=== PATIENT | male | born 1935 | race Caucasian/White ===

== ENCOUNTER 2017-10-04 20:33 | Emergency (ER) | payer MEDICARE, SELFPAY ==
[2017-10-04 20:38] VITALS: BP 121/57; PULSE 63; RESP 22; TEMP 36.4; O2SAT 96
--- NOTE | 2017-10-04 20:40 | DI.RAD.S_ITS ---
PROCEDURE: XR SHOULDER LT MIN 2V INDICATIONS: glf TECHNIQUE: 3 views of the shoulder were acquired. COMPARISON: [facility], , CHEST 2 VIEW, 07/06/2017, 13:34. FINDINGS: Bones: Overriding mid left clavicle fracture, with inferior displacement lateral fragment approximately one shaft width. Chronic left shoulder joint degeneration. Soft tissues: No suspicious soft tissue calcifications. IMPRESSION: Overriding left mid clavicular fracture. Dictated by: Anurag Herrera M.D. on 10/04/2017 at 21:27 Approved by: Anurag Herrera M.D. on 10/04/2017 at 21:29
--- NOTE | 2017-10-04 21:24 | DI.CT.S_ITS ---
PROCEDURE: CT HEAD/BRAIN WO CON INDICATIONS: fall with head injury on Warfarin TECHNIQUE: Noncontrast 4.5 mm thick angled axial sections acquired from the foramen magnum to the vertex, with coronal and sagittal reformats. For radiation dose reduction, the following was used: automated exposure control, adjustment of mA and/or kV according to patient size. COMPARISON: None. FINDINGS: Image quality: Excellent. CSF spaces: Basal cisterns are patent. No extra-axial fluid collections. The ventricles are symmetric in size and shape. Brain: No intracranial bleeds or masses. There is cerebral volume loss for age, with resultant ventricular and sulcal prominence. There are periventricular and deep white matter chronic small vessel ischemic changes. There is intracranial internal carotid artery atherosclerosis. Skull and face: Calvarium and visualized facial bones appear intact, without suspicious lesions. Sinuses: Visualized sinuses and mastoids are clear. IMPRESSION: No acute intracranial process. Dictated by: Anurag Herrera M.D. on 10/04/2017 at 21:57 Approved by: Anurag Herrera M.D. on 10/04/2017 at 21:59
[2017-10-04] MEDS: HYDROCODONE/ACET 5/325 PREPACK 1 BOTTLE MISC (21:47)
[2017-10-04 21:57] LABS: INR 2.7 (0.9-1.3); Prothrombin Time 28.9 SECONDS (10.1-12.7)
[2017-10-04 22:22] VITALS: BP 139/52; PULSE 61
--- NOTE | 2017-10-04 22:22 | PC.NURSE ---
Pt has hx parkinson's with falls occasionally.
--- NOTE | 2017-10-04 22:55 | ED_ITS ---
HPI - Extremity Injury (Upper) General Chief Complaint: Extremity Injury, Upper Stated Complaint: LT SHOULDER INJURY S/P FALL Time Seen by Provider: 10/04/17 21:17 Source: patient and family Mode of arrival: ambulatory Limitations: no limitations History of Present Illness HPI narrative: 81-year-old male with history of Parkinson's and AFib on Coumadin presents with a chief complaint of a mechanical fall in which he fell on his left shoulder and hit his head earlier today. He fell a few days ago also and has bruising on the left side of his face and is yellowing. He denies loss of consciousness nor nausea or vomiting. He denies any neck or back pain. His chief complaint is of left shoulder pain particularly with any motion. He denies numbness or tingling. Patient activated as a modified trauma given ground level fall with head injury on Coumadin Related Data Home Medications Medication Instructions Recorded Confirmed DIMETHYL SULFONE/CHRISTINE ROOT 1 tab PO Q DAY #0 05/10/11 (GLUCOSAMINE/CHONDROITIN/MSM) spironolactone 25 mg PO QDAY #0 05/10/11 atorvastatin [Lipitor] 40 mg PO HS #0 12/20/11 warfarin [Coumadin] 5 mg #0 06/19/16 multivitamin [Multiple Vitamins] Q DAY #0 06/22/16 Previous Rx's Medication Instructions Recorded carbidopa-levodopa 0 PO SEE INSTRUCTIONS #275 tab 06/28/17 carbidopa-levodopa 1 tab PO SEE INSTRUCTIONS #275 tab 06/28/17 ropinirole [Requip] 0 PO SEE INSTRUCTIONS #540 tab 06/28/17 hydrocodone-acetaminophen 1 tab PO Q4-6H PRN #14 tab 10/04/17 Allergies Allergy/AdvReac Type Severity Reaction Status Date / Time No Known Drug Allergies Allergy Verified 10/04/17 21:47 Review of Systems Review of Systems All systems reviewed & are unremarkable except as noted in HPI and below Constitutional Denies chills, Denies fever(s), Denies lethargy and Denies weakness Eyes Denies change in vision, Denies eye discharge, Denies irritation and Denies loss of vision ENT Ears, Nose, Mouth, and Throat: Denies change in voice, Denies neck pain and Denies sore throat Cardiovascular Denies chest pain, Denies irregular heart rhythm, Denies lightheadedness, Denies palpitations, Denies dyspnea, Denies dyspnea on exertion and Denies orthopnea Respiratory Denies cough, Denies dyspnea, Denies dyspnea on exertion and Denies wheezing Gastrointestinal Gastrointestinal: Denies abdominal pain, Denies change in bowel habits, Denies diarrhea, Denies nausea and Denies vomiting Genitourinary Denies hematuria, Denies flank pain, Denies urinary incontinence and Denies urinary urgency Musculoskeletal Reports joint swelling, Reports limited range of motion and Denies neck pain Integumentary/Breasts Denies pruritus, Reports erythema, Denies rash and Denies wounds Neurologic Denies confusion, Denies loss of vision and Denies weakness Psychiatric Denies anxiety, Denies confusion, Denies depression, Denies homicidal ideation and Denies suicidal ideation Endocrine Denies palpitations Hematologic/Lymphatic Denies easy bruising Allergic/Immunologic Denies wheezing PFSH Social History Smoking Status: Former smoker Exam Narrative Exam Narrative: pleasant 81-year-old male resting comfortably with a resting tremor, complaining of pain in his shoulder, splinting it against his chest Initial Vital Signs Initial Vital Signs: Vital Signs Temperature 97.5 F L 10/04/17 20:38 Pulse Rate 63 10/04/17 20:38 Respiratory Rate 22 10/04/17 20:38 Blood Pressure 121/57 H 10/04/17 20:38 Pulse Oximetry 96 10/04/17 20:38 Const General: cooperative, well developed and in distress Nutritional Appearance: well nourished Orientation: alert, awake, oriented x3 and not confused [facility] Head: contusion ( Aging bruising on left side of face with yellowish to brown coloring. New were scalp hematoma on left parietal region is tender, swollen and a bit erythematous) Ears: hearing grossly normal bilaterally Nose: external nose normal Face and sinus: normal facial exam Mouth: oral mucosae normal Eyes General: appearance normal, both eyes and all related structures Eyelids: eyelids normal Conjunctivae: conjunctivae normal Sclera: sclerae normal Pupils: PERRL EOM: EOM intact bilaterally Neck Neck: normal visual inspection, trachea midline, No lymphadenopathy, No midline deformity and No JVD Lymphatic: No lymphedema Chest Chest: normal inspection of the chest Cardio Rate: regular rate Rhythm: regular rhythm Heart Sounds: no click, no gallops, no murmurs and no rubs Pulses: normal peripheral pulses GI Inspection: non-distended Palpation: soft, no hepatosplenomegaly, No guarding, No pulsatile mass and No tender Auscultation: normal bowel sounds Back/Spine/Pelvis Back: No CVA tenderness Cervical Spine: cervical ROM normal and No pain with cervical ROM Thoracic/Lumbar Spine: thoracic and lumbar spine normal to inspection Neuro General: alert, awake and oriented x3 Cognition: normal cognition Speech: speech normal Extrem Left upper extremity: shoulder/upper arm ( painful range of motion of left shoulder with palpable deformity and crepitance over the mid clavicle. No numbness in the axillary distribution) Procedures Orthopedic Splinting/Casting Injury #1: Side: left Upper Extremity Injury Location: clavicle and shoulder Upper Extremity Immobilizer: sling/shoulder immobilizer Course Orders Ordered: ED Orders 10/04/17 20:40 XR shoulder LT min 2V Stat 10/04/17 21:24 CT head/brain wo con Stat 10/04/17 21:37 Prothrombin Time INR Stat Discontinued Medications Hydrocodone Bitart/Acetaminophen (Vicodin Prepack) 1 bottle MISC SEEINSTR ONE Stop: 10/04/17 21:33 Last Admin: 10/04/17 21:47 Dose: 1 bottle Vital Signs - 8 hr 10/04/17 20:38 10/04/17 22:22 Temperature 97.5 F L Pulse Rate 63 61 Respiratory Rate 22 Blood Pressure 121/57 H Blood Pressure [Right Arm] 139/52 H Pulse Oximetry 96 MDM - Extremity Injury (Upper) Lab Data Lab Results 10/04/17 Range/Units 21:37 PT 28.9 H (10.1-12.7) SECONDS INR 2.7 H (0.9-1.3) Discharge Plan Departure Patient Disposition: Home, Self-Care Clinical Impression: Contusion of scalp, Fracture closed, clavicle, shaft Discharge Date/Time: 10/04/17 23:16 Interventions: ED Discharge Assessment Last Done: 10/04/17 22:28 Activity Restrictions/Additional Instructions: *You have been diagnosed with [ Scalp contusion and left clavicle fracture ] *What to do: *Take medications as directed *Follow up with your primary care provider in 2-3 days, call for an appointment. Let them know you were seen in the Emergency Department and that we ask that you be seen in follow up. also you have been given follow-up instructions and contact info for Dr. Hightower with [facility], please call for appointment *Return to ER if you should have any new, worsening or concerning symptoms , such as [ blurred vision, trouble with speech, numbness, tingling or other stroke-like symptoms ] You have been prescribed narcotic medications. While on these medications you cannot drive or operate heavy machinery. Additionally you cannot sign legal documents or perform any duties such as this. Many people get constipated on narcotic medications so it would be advisable to discuss stool softeners with the pharmacist when you steel pickler your prescription. Please understand that we cannot provide further refills of narcotics or controlled substances through the ED and your pain management will need to be through your Primary Care Provider Prescriptions: New hydrocodone-acetaminophen 5-325 mg tablet 1 tab PO Q4-6H PRN (Reason: pain) Qty: 14 RF: 0 No Action DIMETHYL SULFONE/CHRISTINE ROOT (GLUCOSAMINE/CHONDROITIN/MSM) 1 tab PO Q DAY Qty: 0 RF: 0 spironolactone 25 MG tablet 25 mg PO QDAY Qty: 0 RF: 0 atorvastatin [Lipitor] 40 MG tablet 40 mg PO HS Qty: 0 RF: 0 warfarin [Coumadin] 5 MG tablet 5 mg Qty: 0 RF: 0 multivitamin [Multiple Vitamins] 1 EACH tablet Q DAY Qty: 0 RF: 0 ropinirole [Requip] 3 MG tablet PO SEE INSTRUCTIONS Qty: 540 RF: 3 carbidopa-levodopa 50 MG/200 MG tablet extended release 1 tab PO SEE INSTRUCTIONS Qty: 275 RF: 3 carbidopa-levodopa 25 MG/100 MG tablet PO SEE INSTRUCTIONS Qty: 275 RF: 3 Referrals: Jean Hightower MD [Physician] - Red Kessler MD [Primary Care Provider] -
== END 2017-10-04 23:16 | disposition home or self-care (01) ==
PROVIDERS: Emergency Provider Emergency Medicine; Family Provider Family Medicine; PCP Family Medicine
DX: S00.03XA Contusion of scalp, initial encounter (principal); S42.002A Fracture of unspecified part of left clavicle, initial encounter for closed fracture; W19.XXXA Unspecified fall, initial encounter
CPT/HCPCS: 29240; 36415; 70450; 73030; 85610; 99283; 99284; 99291

== ENCOUNTER 2017-12-22 09:31 | Emergency (ER) | payer MEDICARE, SELFPAY ==
[2017-12-22 09:40] VITALS: BP 111/55; PULSE 59; RESP 20; TEMP 36.3; O2SAT 95
--- NOTE | 2017-12-22 09:40 | ED.TRAUMA ---
HPI - Trauma General Chief Complaint: Fall Stated Complaint: Ground Level Fall Time Seen by Provider: 12/22/17 09:39 Source: patient and EMS Mode of arrival: EMS Limitations: no limitations History of Present Illness HPI narrative: This is an 82-year-old comes to the emergency department with complaint of ground level fall. Patient states that he just fell to the ground. He has Parkinson's which has been slowly worsening over time and he has had increasing frequency of falls secondary to this. He states he did get lightheaded dizzy, he did have loss of consciousness. He did land on his face Um and has a small laceration at the bridge of his nose as well as abrasions on his face and left elbow. He denies any headache, no neck or back pain. He denies any new weakness. He denies any vision changes, no nausea, no vomiting no other GI or urinary symptoms. He thinks his tetanus was sometime in the last 10 years. he used to be on Coumadin but stopped 4 months ago because of his frequent falls. MD complaint: fall Related Data Home Medications Medication Instructions Recorded Confirmed spironolactone 25 mg PO QDAY #0 05/10/11 12/22/17 atorvastatin [Lipitor] 40 mg PO HS #0 12/20/11 12/22/17 carbidopa-levodopa 1 tab PO DIRECTED 12/22/17 12/22/17 carbidopa-levodopa 1 tab PO Q4H 12/22/17 12/22/17 carvedilol 1 tab PO BID 12/22/17 12/22/17 furosemide 60 mg PO DAILY 12/22/17 12/22/17 lisinopril 5 mg PO DAILY 12/22/17 12/22/17 ropinirole [Requip] 2 tab PO TID 12/22/17 12/22/17 Allergies Allergy/AdvReac Type Severity Reaction Status Date / Time No Known Drug Allergies Allergy Verified 12/22/17 10:02 Review of Systems Review of Systems All systems reviewed & are unremarkable except as noted in HPI and below Constitutional Reports frequent falls, Denies headache(s) and Denies weakness Eyes Denies blurry vision and Denies other visual disturbances ENT Ears, Nose, Mouth, and Throat: Denies headache(s), Reports nasal trauma, Reports nose pain and Reports other (Facial abrasions) Cardiovascular Denies chest pain, Denies diaphoresis, Denies syncope, Denies irregular heart rhythm, Denies lightheadedness, Denies palpitations, Reports dyspnea (Patient states he is always short of breath, states this is not new or different.) and Denies orthopnea Respiratory Denies cough, Reports dyspnea (Patient states he is always short of breath, states this is not new or different.) and Denies wheezing Gastrointestinal Gastrointestinal: Denies abdominal pain, Denies change in bowel habits, Denies diarrhea, Denies nausea and Denies vomiting Genitourinary Denies hematuria, Denies flank pain, Denies urinary incontinence and Denies urinary urgency Musculoskeletal Denies numbness Comments: Parkinson's disease, patient is still taking medications. Having increased movement. Integumentary/Breasts Reports lesions (left arm, face.) Neurologic Reports as per HPI, Reports abnormal movements (2nd Parkinson's disease, not new.), Denies confusion, Denies syncope, Reports frequent falls, Denies headache(s), Denies numbness, Denies paresthesias and Denies weakness Psychiatric Denies confusion Endocrine Denies palpitations Allergic/Immunologic Denies wheezing PFSH Medical History Parkinson disease (Chronic) Social History housing: longterm Smoking Status: Former smoker Exam Narrative Exam Narrative: GEN: Patient appears in mild distress. HEAD: Patient has a 3 x 4 cm abrasion on his anterior forehead, he has a small 1 cm laceration bridge of his nose, there is subcutaneous tissue exposed there is no bone exposed, the nose itself appears and alignment, he has some abrasion over the nose itself, and patient has dried blood in the left nare, no raccoon/[place] sign. NECK: Nontender, painless range of motion, trachea midline Negative Nexus criteria, there is no midline tenderness, distracting injury, altered mental status, neuro deficit, recent EtOH. EYES: PERRLA, EOMI ENT: External inspection see above, patient does no bony tenderness and normal alignment of the nose trachea is midline, TM's are normal no hemotypanum, Nare follow-up shows dried blood, none noted on the right, no septal hematoma, no dental or oral injury, airway is normal and with normal occlusion, No bony tenderness RESP: Chest is nontender and has symmetric movement, no ecchymosis, breath sounds are normal no crackles, wheezes or rales CVS: Heart sounds are normal, no murmur noted, No JVD. Edema bilateral lower extremities. ABG/GI: Nontender, soft, normal bowel sounds, no distention, no organomegaly, pelvic rock is negative NEURO: Oriented AOx3, neuro is grossly intact, sensation and motor is normal all 4 extremities moving with the exception of intermittent Um uncontrolled movements particularly of the upper extremities but some also the lower, patient is able to sit up in the bed without any assistance he is able to lift and move his arms without assistance, cranial nerves II through XII are intact, GCS is 15 PSYCH: Normal mood and affect SKIN: Intact, warm and dry, no crepitus and without decubitus BACK: No CVA tenderness, no vertebral tenderness, no step-off's, no crepitus EXT: Atraumatic, hips are nontender, no pedal edema, normal color and temperature, normal range of motion of extremities with normal tendon exam, 2+ pulses in all four extremities Initial Vital Signs Initial Vital Signs: Vital Signs Temperature 97.4 F L 12/22/17 09:40 Pulse Rate 59 L 12/22/17 09:40 Respiratory Rate 20 12/22/17 09:40 Blood Pressure 111/55 L 12/22/17 09:40 Pulse Oximetry 95 12/22/17 09:40 Procedures Laceration Repair Laceration 1: Site: face (bridge of nose) Size (cm): 1 Description: linear Depth: simple, single layer Local Anesthetic: lidocaine 1% Amount of anesthesia used (mL): 0.5 Pre-repair: wound explored, irrigated extensively and deep structures intact Skin layer closed with: vicryl Size (cm): 5-0 Number of sutures: 4 Scores GCS Warwick coma scale eye opening: Spontaneous Gin coma scale verbal response: Orientated [place] coma scale motor response: Obey commands Gin coma scale total score: 15 Course Orders Ordered: ED Orders 12/22/17 09:39 CT head/brain wo con Stat Discontinued Medications Diphtheria/Tetanus/Acell Pertussis (Adacel) 0.5 ml IM .ONCE ONE Stop: 12/22/17 09:40 Last Admin: 12/22/17 10:09 Dose: 0.5 ml Vital Signs - 8 hr 12/22/17 11:23 Pulse Rate 60 Respiratory Rate 20 Blood Pressure [Right Arm] 128/58 L Pulse Oximetry 95 MDM - Trauma Imaging Data CT scan - head: Radiologist's impression: [address] [address] [address] Scan Report Signed Patient: Justo Gunderson [facility]#: [id number] : 6Acct:[id number] Age/Sex: 82 / MDate of Service: 12/22/17 Loc: ED Accession Number: [id number] Procedure: CT head/brain wo con Ordering Provider: Ivonne Del Toro D.O. PROCEDURE: CT HEAD/BRAIN WO CON INDICATIONS: ground level fall, head injury TECHNIQUE: Noncontrast 4.5 mm thick angled axial sections acquired from the foramen magnum to the vertex, with coronal and sagittal reformats. For radiation dose reduction, the following was used: automated exposure control, adjustment of mA and/or kV according to patient size. COMPARISON: [facility], CT, CT HEAD/BRAIN WO CON, 10/04/2017, 21:42. FINDINGS: Image quality: Excellent. CSF spaces: Basal cisterns are patent. No extra-axial fluid collections. The ventricles are symmetric in size and shape. Brain: No intracranial bleeds or masses. There is cerebral volume loss for age, with resultant ventricular and sulcal prominence. There are periventricular and deep white matter chronic small vessel ischemic changes. There is intracranial internal carotid artery and vertebral artery atherosclerosis. Skull and face: Calvarium and visualized facial bones appear intact, without suspicious lesions. Right frontal scalp hematoma is noted. Sinuses: Visualized sinuses and mastoids are clear. IMPRESSION: No acute intracranial disease process. Dictated by: Danica Roland MD, PhD on 12/22/2017 at 10:27 Approved by: Danica Roland MD, PhD on 12/22/2017 at 10:30 [facility] Narrative Medical decision making narrative: Based on patient's age CT of the head was ordered although he is no longer blood thinners he does have increased risk for intracranial hemorrhage in does have head injury. Discharge Plan Departure Patient Disposition: Home Clinical Impression: Abrasion of scalp, Laceration of nose, Abrasion of elbow, left Discharge Date/Time: 12/22/17 11:39 Interventions: ED Discharge Assessment Last Done: 12/22/17 11:39 Instructions: Concussion Activity Restrictions/Additional Instructions: Wound Care: Keep wound(s) clean and dry. Wash daily with soap and water only. Do not use over the counter products (alcohol or peroxide)on the wounds unless instructed by a physician. If wound condition worsens (increased/expanding redness, developing fluid blisters, or worsening pain), either contact your doctor for an urgent re-assessment , or return to the Emergency Department. Return to the Emergency Department for any new or worsening symptoms. Return if fever greater than 100.4 Fahrenheit, increased swelling, increasing pain or worsening symptoms such as increased discharge or spreading redness. Use warm compresses 3 times daily for 20 minutes to the affected area. . Having sudden severe headaches, decreased mental status, vision changes, new neck or back pain, new weakness or numbness or inability to move her extremities, persistent vomiting or other new or concerning symptoms. Prescriptions: No Action spironolactone 25 MG tablet 25 mg PO QDAY Qty: 0 RF: 0 atorvastatin [Lipitor] 40 MG tablet 40 mg PO HS Qty: 0 RF: 0 furosemide 40 mg tablet 60 mg PO DAILY RF: 0 carvedilol 3.125 mg tablet 1 tab PO BID RF: 0 lisinopril 10 mg tablet 5 mg PO DAILY RF: 0 ropinirole [Requip] 3 MG tablet 2 tab PO TID RF: 0 carbidopa-levodopa 50 MG/200 MG tablet extended release 1 tab PO Q4H RF: 0 carbidopa-levodopa 25 MG/100 MG tablet 1 tab PO DIRECTED RF: 0 Referrals: Red Kessler MD [Primary Care Provider] -
--- NOTE | 2017-12-22 09:51 | ED_ITS ---
HPI - Trauma General Chief Complaint: Fall Stated Complaint: Ground Level Fall Time Seen by Provider: 12/22/17 09:39 Source: patient and EMS Mode of arrival: EMS Limitations: no limitations History of Present Illness HPI narrative: This is an 82-year-old comes to the emergency department with complaint of ground level fall. Patient states that he just fell to the ground. He has Parkinson's which has been slowly worsening over time and he has had increasing frequency of falls secondary to this. He states he did get lightheaded dizzy, he did have loss of consciousness. He did land on his face Um and has a small laceration at the bridge of his nose as well as abrasions on his face and left elbow. He denies any headache, no neck or back pain. He denies any new weakness. He denies any vision changes, no nausea, no vomiting no other GI or urinary symptoms. He thinks his tetanus was sometime in the last 10 years. he used to be on Coumadin but stopped 4 months ago because of his frequent falls. MD complaint: fall Related Data Home Medications Medication Instructions Recorded Confirmed spironolactone 25 mg PO QDAY #0 05/10/11 12/22/17 atorvastatin [Lipitor] 40 mg PO HS #0 12/20/11 12/22/17 carbidopa-levodopa 1 tab PO DIRECTED 12/22/17 12/22/17 carbidopa-levodopa 1 tab PO Q4H 12/22/17 12/22/17 carvedilol 1 tab PO BID 12/22/17 12/22/17 furosemide 60 mg PO DAILY 12/22/17 12/22/17 lisinopril 5 mg PO DAILY 12/22/17 12/22/17 ropinirole [Requip] 2 tab PO TID 12/22/17 12/22/17 Allergies Allergy/AdvReac Type Severity Reaction Status Date / Time No Known Drug Allergies Allergy Verified 12/22/17 10:02 Review of Systems Review of Systems All systems reviewed & are unremarkable except as noted in HPI and below Constitutional Reports frequent falls, Denies headache(s) and Denies weakness Eyes Denies blurry vision and Denies other visual disturbances ENT Ears, Nose, Mouth, and Throat: Denies headache(s), Reports nasal trauma, Reports nose pain and Reports other (Facial abrasions) Cardiovascular Denies chest pain, Denies diaphoresis, Denies syncope, Denies irregular heart rhythm, Denies lightheadedness, Denies palpitations, Reports dyspnea (Patient states he is always short of breath, states this is not new or different.) and Denies orthopnea Respiratory Denies cough, Reports dyspnea (Patient states he is always short of breath, states this is not new or different.) and Denies wheezing Gastrointestinal Gastrointestinal: Denies abdominal pain, Denies change in bowel habits, Denies diarrhea, Denies nausea and Denies vomiting Genitourinary Denies hematuria, Denies flank pain, Denies urinary incontinence and Denies urinary urgency Musculoskeletal Denies numbness Comments: Parkinson's disease, patient is still taking medications. Having increased movement. Integumentary/Breasts Reports lesions (left arm, face.) Neurologic Reports as per HPI, Reports abnormal movements (2nd Parkinson's disease, not new.), Denies confusion, Denies syncope, Reports frequent falls, Denies headache (s), Denies numbness, Denies paresthesias and Denies weakness Psychiatric Denies confusion Endocrine Denies palpitations Allergic/Immunologic Denies wheezing PFSH Medical History Parkinson disease (Chronic) Social History housing: fdc Smoking Status: Former smoker Exam Narrative Exam Narrative: GEN: Patient appears in mild distress. HEAD: Patient has a 3 x 4 cm abrasion on his anterior forehead, he has a small 1 cm laceration bridge of his nose, there is subcutaneous tissue exposed there is no bone exposed, the nose itself appears and alignment, he has some abrasion over the nose itself, and patient has dried blood in the left nare, no raccoon/ Valverde sign. NECK: Nontender, painless range of motion, trachea midline Negative Nexus criteria, there is no midline tenderness, distracting injury, altered mental status, neuro deficit, recent EtOH. EYES: PERRLA, EOMI ENT: External inspection see above, patient does no bony tenderness and normal alignment of the nose trachea is midline, TM's are normal no hemotypanum, Nare follow-up shows dried blood, none noted on the right, no septal hematoma, no dental or oral injury, airway is normal and with normal occlusion, No bony tenderness RESP: Chest is nontender and has symmetric movement, no ecchymosis, breath sounds are normal no crackles, wheezes or rales CVS: Heart sounds are normal, no murmur noted, No JVD. Edema bilateral lower extremities. ABG/GI: Nontender, soft, normal bowel sounds, no distention, no organomegaly, pelvic rock is negative NEURO: Oriented AOx3, neuro is grossly intact, sensation and motor is normal all 4 extremities moving with the exception of intermittent Um uncontrolled movements particularly of the upper extremities but some also the lower, patient is able to sit up in the bed without any assistance he is able to lift and move his arms without assistance, cranial nerves II through XII are intact, GCS is 15 PSYCH: Normal mood and affect SKIN: Intact, warm and dry, no crepitus and without decubitus BACK: No CVA tenderness, no vertebral tenderness, no step-off's, no crepitus EXT: Atraumatic, hips are nontender, no pedal edema, normal color and temperature, normal range of motion of extremities with normal tendon exam, 2+ pulses in all four extremities Initial Vital Signs Initial Vital Signs: Vital Signs Temperature 97.4 F L 12/22/17 09:40 Pulse Rate 59 L 12/22/17 09:40 Respiratory Rate 20 12/22/17 09:40 Blood Pressure 111/55 L 12/22/17 09:40 Pulse Oximetry 95 12/22/17 09:40 Procedures Laceration Repair Laceration 1: Site: face (bridge of nose) Size (cm): 1 Description: linear Depth: simple, single layer Local Anesthetic: lidocaine 1% Amount of anesthesia used (mL): 0.5 Pre-repair: wound explored, irrigated extensively and deep structures intact Skin layer closed with: vicryl Size (cm): 5-0 Number of sutures: 4 Scores GCS Gin coma scale eye opening: Spontaneous Butler coma scale verbal response: Orientated Butler coma scale motor response: Obey commands Gin coma scale total score: 15 Course Orders Ordered: ED Orders 12/22/17 09:39 CT head/brain wo con Stat Discontinued Medications Diphtheria/Tetanus/Acell Pertussis (Adacel) 0.5 ml IM .ONCE ONE Stop: 12/22/17 09:40 Last Admin: 12/22/17 10:09 Dose: 0.5 ml Vital Signs - 8 hr 12/22/17 11:23 Pulse Rate 60 Respiratory Rate 20 Blood Pressure [Right Arm] 128/58 L Pulse Oximetry 95 MDM - Trauma Imaging Data CT scan - head: Radiologist's impression: [address] [address] [address] Scan Report Signed Patient: Just[facility] Gunderson [facility]#: [id number] : 6Acct:[id number] Age/Sex: 82 / MDate of Service: 12/22/17 Loc: ED Accession Number: [id number] Procedure: CT head/brain wo con Ordering Provider: Ivonne Del Toro D.O. PROCEDURE: CT HEAD/BRAIN WO CON INDICATIONS: ground level fall, head injury TECHNIQUE: Noncontrast 4.5 mm thick angled axial sections acquired from the foramen magnum to the vertex, with coronal and sagittal reformats. For radiation dose reduction, the following was used: automated exposure control, adjustment of mA and/or kV according to patient size. COMPARISON: [facility], CT, CT HEAD/BRAIN WO CON, 10/04/2017, 21:42. FINDINGS: Image quality: Excellent. CSF spaces: Basal cisterns are patent. No extra-axial fluid collections. The ventricles are symmetric in size and shape. Brain: No intracranial bleeds or masses. There is cerebral volume loss for age , with resultant ventricular and sulcal prominence. There are periventricular and deep white matter chronic small vessel ischemic changes. There is intracranial internal carotid artery and vertebral artery atherosclerosis. Skull and face: Calvarium and visualized facial bones appear intact, without suspicious lesions. Right frontal scalp hematoma is noted. Sinuses: Visualized sinuses and mastoids are clear. IMPRESSION: No acute intracranial disease process. Dictated by: Danica Roland MD, PhD on 12/22/2017 at 10:27 Approved by: Danica Roland MD, PhD on 12/22/2017 at 10:30 [facility] Narrative Medical decision making narrative: Based on patient's age CT of the head was ordered although he is no longer blood thinners he does have increased risk for intracranial hemorrhage in does have head injury. Discharge Plan Departure Patient Disposition: Home Clinical Impression: Abrasion of scalp, Laceration of nose, Abrasion of elbow, left Discharge Date/Time: 12/22/17 11:39 Interventions: ED Discharge Assessment Last Done: 12/22/17 11:39 Instructions: Concussion Activity Restrictions/Additional Instructions: Wound Care: Keep wound(s) clean and dry. Wash daily with soap and water only. Do not use over the counter products (alcohol or peroxide)on the wounds unless instructed by a physician. If wound condition worsens (increased/expanding redness, developing fluid blisters, or worsening pain), either contact your doctor for an urgent re- assessment , or return to the Emergency Department. Return to the Emergency Department for any new or worsening symptoms. Return if fever greater than 100.4 Fahrenheit, increased swelling, increasing pain or worsening symptoms such as increased discharge or spreading redness. Use warm compresses 3 times daily for 20 minutes to the affected area. . Having sudden severe headaches, decreased mental status, vision changes, new neck or back pain, new weakness or numbness or inability to move her extremities , persistent vomiting or other new or concerning symptoms. Prescriptions: No Action spironolactone 25 MG tablet 25 mg PO QDAY Qty: 0 RF: 0 atorvastatin [Lipitor] 40 MG tablet 40 mg PO HS Qty: 0 RF: 0 furosemide 40 mg tablet 60 mg PO DAILY RF: 0 carvedilol 3.125 mg tablet 1 tab PO BID RF: 0 lisinopril 10 mg tablet 5 mg PO DAILY RF: 0 ropinirole [Requip] 3 MG tablet 2 tab PO TID RF: 0 carbidopa-levodopa 50 MG/200 MG tablet extended release 1 tab PO Q4H RF: 0 carbidopa-levodopa 25 MG/100 MG tablet 1 tab PO DIRECTED RF: 0 Referrals: Red Kessler MD [Primary Care Provider] -
[2017-12-22] MEDS: TET,DIPH,PERTUSS(ACELL),VAC/PF 0.5 ML SYRINGE IM (10:09)
[2017-12-22 11:23] VITALS: BP 128/58; PULSE 60; RESP 20; O2SAT 95
== END 2017-12-22 11:39 | disposition home or self-care (01) ==
PROVIDERS: Emergency Provider Emergency Medicine; Family Provider Family Medicine; PCP Family Medicine
DX: S01.21XA Laceration without foreign body of nose, initial encounter (principal); S50.312A Abrasion of left elbow, initial encounter; W18.30XA Fall on same level, unspecified, initial encounter
CPT/HCPCS: 12011; 70450; 90471; 99283; 90715

== ENCOUNTER 2018-01-29 21:34 | Inpatient (IN) | payer MEDICARE, SELFPAY ==
[2018-01-29 21:44] VITALS: BP 132/91; PULSE 58; RESP 28; TEMP 36.4; O2SAT 95
--- NOTE | 2018-01-29 21:53 | DI.RAD.S_ITS ---
PROCEDURE: XR LUMBAR SPINE 2-3V INDICATIONS: back pain, ground level fall TECHNIQUE: 3 views of the lumbar spine were acquired. COMPARISON: [facility], CT, CT-IVP, 06/09/2011, 8:43. FINDINGS: Bones: Rudimentary inferior extent noted. There are 5 [id number] vertebrae. There is normal bony alignment. No vertebral body compression fractures. No suspicious bony lesions. Degenerative disc disease is present, severe at L2-L3 and L3-L4, moderate at L1-L2, L4-L5 and L5-S1. There is severe facet arthropathy at L4-L5 and L5-S1. Soft tissues: Overlying bowel gas pattern is normal. Aortic calcifications consistent with atherosclerosis. IMPRESSION: 1. No fractures. 2. Degenerative disc and facet disease. 3. Severe atherosclerosis. Dictated by: Katlin Arizmendi M.D. on 01/30/2018 at 9:08 Approved by: Katlin Arizmendi M.D. on 01/30/2018 at 9:12
--- NOTE | 2018-01-29 21:55 | ED.FALL ---
HPI - Fall General Chief Complaint: Fall Stated Complaint: FALL BACK IS KILLING HIM Time Seen by Provider: 01/29/18 21:54 Source: patient and family Limitations: no limitations History of Present Illness HPI Narrative: This is an 82-year-old gentleman who comes to the emergency department with complaint of fall. Patient has Parkinson's which causes him to fall quite frequently. Patient states that he fell today and his back. He has pain in his back and complains mostly in the left side. Patient does not any tenderness of the bone itself. Patient hitting his head he is very clear that he did not, he does take aspirin daily as a blood thinner but does not take any other anticoagulants. Patient is denying any chest pain or new shortness of breath. No nausea or vomiting. He is denying any other new injuries. He does have abrasions on both knees which he and his family states are chronic from prior falls and then get irritated again when he falls again. He does not have any other complaint of bony tenderness elsewhere. Related Data Home Medications Medication Instructions Recorded Confirmed spironolactone 25 mg PO QDAY #0 05/10/11 01/30/18 atorvastatin [Lipitor] 40 mg PO HS #0 12/20/11 01/30/18 carbidopa-levodopa 1 tab PO DIRECTED 12/22/17 01/30/18 carbidopa-levodopa 1 tab PO Q4H 12/22/17 01/30/18 carvedilol 1 tab PO BID 12/22/17 01/30/18 furosemide 60 mg PO DAILY 12/22/17 01/30/18 lisinopril 5 mg PO DAILY 12/22/17 01/30/18 ropinirole [Requip] 2 tab PO TID 12/22/17 01/30/18 Previous Rx's Medication Instructions Recorded hydrocodone-acetaminophen [[place]] 1 tab PO Q6H PRN #10 tab 01/29/18 Allergies Allergy/AdvReac Type Severity Reaction Status Date / Time No Known Drug Allergies Allergy Verified 01/29/18 21:50 Review of Systems Review of Systems All systems reviewed & are unremarkable except as noted in HPI and below Constitutional Reports frequent falls, Denies headache(s) and Denies other ( LOC, head) ENT Ears, Nose, Mouth, and Throat: Denies headache(s) and Denies neck pain Cardiovascular Denies chest pain and Reports dyspnea ( chronic no new change) Respiratory Reports dyspnea ( chronic no new change) Gastrointestinal Gastrointestinal: Denies abdominal pain, Reports change in bowel habits, Denies diarrhea, Denies nausea and Denies vomiting Genitourinary Denies difficulty urinating Musculoskeletal Reports back pain, Reports limited range of motion, Denies muscle weakness, Denies neck pain, Denies numbness and Reports other ( Parkinson') Neurologic Reports abnormal movements ( has Parkinson's), Reports frequent falls, Denies headache(s) and Denies numbness Exam Narrative Exam Narrative: GEN:Patient appears in moderate distress. HEAD: No evidence of trauma, no raccoon/Valverde sign. NECK: Nontender, painless range of motion, trachea midline Negative Nexus criteria, there is no mid-line tenderness, distracting injury, altered mental status, neuro deficit, recent EtOH. EYES: PERRLA, EOMI ENT: External inspection normal, trachea is midline, Nares are clear, airway is normal and with normal occlusion, No bony tenderness RESP: Chest is nontender and has symmetric movement, no ecchymosis, breath sounds are normal no crackles, wheezes or rales CVS: Heart sounds are normal, no murmur noted, No JVD. ABG/GI: Nontender, soft, normal bowel sounds, no distention, no organomegaly, pelvic rock is negative. NEURO: Oriented AOx3, neuro is grossly intact, sensation and motor is normal all 4 extremities moving, cranial nerves II through XII are intact, GCS is 15, patient has tremor of all four extremities, he has exagerrated movement of all extremities as well. PSYCH: Normal mood and affect SKIN: Abrasions bilateral knees, no erythema or drainage, no signs of infection, patient also has some small areas of ecchymosis of the right flank region, warm and dry, no crepitus and without decubitus BACK: No CVA tenderness, no vertebral tenderness, no step-off's, no crepitus, patient able to roll to side with assistance without too much discomfort. EXT: Atraumatic, hips are nontender, no pedal edema, normal color and temperature, normal range of motion of extremities with normal tendon exam, 2+ pulses in all four extremities Initial Vital Signs Initial Vital Signs: Vital Signs Temperature 97.5 F L 01/29/18 21:44 Pulse Rate 58 L 01/29/18 21:44 Respiratory Rate 28 H 01/29/18 21:44 Blood Pressure 132/91 H 01/29/18 21:44 Pulse Oximetry 95 01/29/18 21:44 [facility] Medical History Parkinson disease (Chronic) Social History housing: intermediate Smoking Status: Former smoker Course Orders Ordered: ED Orders 01/29/18 21:53 XR lumbar spine 2-3V Stat 01/29/18 22:30 Complete Blood Count AUTO DIFF Stat Comprehensive Metabolic Panel Stat 01/30/18 EKG-12 Lead Routine 01/30/18 00:06 XR chest 1V Stat 01/30/18 00:36 B Type Natriuretic Peptide Stat Troponin I Stat 01/30/18 00:37 EKG-12 Lead Stat Discontinued Medications Furosemide (Lasix) 40 mg IV NOW ONE Stop: 01/30/18 00:42 Last Admin: 01/30/18 01:33 Dose: 40 mg Morphine Sulfate (Morphine) 2 mg IV NOW ONE Stop: 01/29/18 21:54 Last Admin: 01/29/18 22:17 Dose: 2 mg Vital Signs - 8 hr 01/29/18 21:44 01/29/18 23:49 01/30/18 00:05 Temperature 97.5 F L 97.9 F Pulse Rate 58 L 59 L Respiratory Rate 28 H 28 H Blood Pressure 132/91 H Blood Pressure [Left Arm] 107/49 L Pulse Oximetry 95 95 85 L 01/30/18 01:04 01/30/18 02:26 01/30/18 02:52 Temperature 97.8 F Pulse Rate 59 L 60 63 Respiratory Rate 20 16 Blood Pressure 127/60 Blood Pressure [Left Arm] 112/55 L 115/54 L Pulse Oximetry 95 96 94 MDM - Fall Lab Data Attestation: I reviewed the patient's lab results. Result diagrams: 01/29/18 22:30 01/29/18 22:30 Lab Results 01/29/18 01/29/18 01/29/18 Range/Units 22:30 22:30 22:30 WBC 9.4 (4.5-11.0) X10^3/uL RBC 3.62 L (4.5-5.9) X10^6/uL Hgb 10.7 L (13.5-17.5) g/dL Hct 32.7 L (41-53) % MCV 90.3 (80-100) fL MCH 29.6 (26-34) PG MCHC 32.8 (30-36) % RDW 15.4 H (11.6-14.8) % Plt Count 266 (150-400) X10^3/uL Neut % (Auto) 86.2 H (50-75) % Lymph % (Auto) 4.7 L (25-40) % Meagher % (Auto) 7.5 (3-14) % Eos % (Auto) 1.1 L (2-4) % Baso % (Auto) 0.5 (0-2) % Neut # (Auto) 8100 H (7909-7677) /uL Sodium 136 L (137-145) mmol/L Potassium 5.3 H (3.4-5.1) mmol/L Chloride 102 (98-107) mmol/L Carbon Dioxide 23 (22-32) mmol/L BUN 43 H (9-20) mg/dL Creatinine 0.80 (0.66-1.25) mg/dL Estimated GFR > 60.0 (>60) mL/min BUN/Creatinine Ratio 53.8 H (6-22) Glucose 104 (80-110) mg/dL Calcium 8.4 (8.4-10.2) mg/dL Total Bilirubin 1.1 (0.2-1.3) mg/dL AST 57 (17-59) IU/L ALT 15 L (21-72) IU/L Alkaline Phosphatase 201 H (38-126) U/L Troponin I 0.030 (0.01-0.034) ng/mL B-Natriuretic Peptide (<100) Total Protein 6.1 L (6.3-8.2) g/dL Albumin 3.2 L (3.5-5.0) g/dL Globulin 2.9 (1.7-4.1) g/dL Albumin/Globulin Ratio 1.1 (1.0-2.8) 11/12/18 Range/Units 22:30 WBC (4.5-11.0) X10^3/uL RBC (4.5-5.9) X10^6/uL Hgb (13.5-17.5) g/dL Hct (41-53) % MCV (80-100) fL MCH (26-34) PG MCHC (30-36) % RDW (11.6-14.8) % Plt Count (150-400) X10^3/uL Neut % (Auto) (50-75) % Lymph % (Auto) (25-40) % Meagher % (Auto) (3-14) % Eos % (Auto) (2-4) % Baso % (Auto) (0-2) % Neut # (Auto) (3603-7367) /uL Sodium (137-145) mmol/L Potassium (3.4-5.1) mmol/L Chloride (98-107) mmol/L Carbon Dioxide (22-32) mmol/L BUN (9-20) mg/dL Creatinine (0.66-1.25) mg/dL Estimated GFR (>60) mL/min BUN/Creatinine Ratio (6-22) Glucose (80-110) mg/dL Calcium (8.4-10.2) mg/dL Total Bilirubin (0.2-1.3) mg/dL AST (17-59) IU/L ALT (21-72) IU/L Alkaline Phosphatase (38-126) U/L Troponin I (0.01-0.034) ng/mL B-Natriuretic Peptide 829.0 H (<100) Total Protein (6.3-8.2) g/dL Albumin (3.5-5.0) g/dL Globulin (1.7-4.1) g/dL Albumin/Globulin Ratio (1.0-2.8) Imaging Data Lspine xray: Radiologist's impression: Superior endplate deformity L1 with loss of vertebral body height about 10%. No retropulsion. Age indeterminate. Degenerative changes. Chest x-ray: My impression: infiltrate left chest, pulmonary edema, no fx, no pneumothorax. Radiologist's impression: ECG Data Attestation: I personally reviewed and interpreted this ECG as follows: Prior ECG tracings: available for review Interpretation: Ventricularly paced rhythm, rate of 60 QRS of 202, QTC of 506 patient has prior EKG from 06/19/2016 which appears similar MDM Narrative Medical decision making narrative: Patient was due for his home medication, given by family in ED. Morphine ordered for pain and IV placed as there is potential for bony injury. No vertebral tenderness but xray ordered based on age and mechanism. Imaging shows age indeterminant endplate deformity. Patient basic labs obtained, K is slightly elevated, patient hypoxic in room and to get standing down to 85%, patient not normally on oxygen. CXR ordered, and shows changes, concerning for infiltrate although no signs of infection, less likely hemothorax, no rib tenderness for fx or similar causes, bnp elevated, trop normal range. Plan for lasix which patient initially refused. Dr. Wells accepts will see in am. Discharge Plan Departure Patient Disposition: Admitted as Observation Clinical Impression: Back pain, Fall from ground level, Compression fracture, Hypoxia, Acute exacerbation of CHF (congestive heart failure) Discharge Date/Time: 01/30/18 02:40 Interventions: ED Discharge Assessment Last Done: 01/30/18 02:44 Admit Date/Time: 01/30/18 01:35 Admit Provider: Ryder Wells
--- NOTE | 2018-01-29 21:56 | PC.NURSE ---
Pt hit his back on window sill as he came down. Contusion to right side/flank area. He complains of pain the most in the middle of the back around the spine area. Denies head or neck pain. Alert and oriented at baseline. Family at bedside.
[2018-01-29] MEDS: MORPHINE 2 MG/ML INJ IV (22:17)
--- NOTE | 2018-01-29 22:41 | PC.NURSE ---
Pt laying supine, resting with eyes closed. Oxygen saturation at 84% room air. Placed him on 3L oxygen nasal cannula. He is now at 94%.
[2018-01-29 23:47] LABS: Add Manual Diff / Slide Review NO; Basophils Percent Auto 0.5 % (0-2); Eosinophils Percent Auto 1.1 % (2-4); Hematocrit 32.7 % (41-53); Hemoglobin 10.7 g/dL (13.5-17.5); Lymphocytes Percent Auto 4.7 % (25-40); Mean Corpuscular HGB Conc 32.8 % (30-36); Mean Corpuscular Hemoglobin 29.6 PG (26-34); Mean Corpuscular Volume 90.3 fL (80-100); Monocytes Percent Auto 7.5 % (3-14); Neutrophils Absolute Auto 8100 /uL (3000-5900); Neutrophils Percent Auto 86.2 % (50-75); Platelet Count 266 X10^3/uL (150-400); Red Blood Cell Count 3.62 X10^6/uL (4.5-5.9); Red Cell Distribution Width 15.4 % (11.6-14.8); White Blood Cell Count 9.4 X10^3/uL (4.5-11.0)
[2018-01-29 23:49] VITALS: BP 107/49; PULSE 59; TEMP 36.6; O2SAT 95
[2018-01-29 23:51] LABS: Alanine Aminotransferase 15 IU/L (21-72); Albumin 3.2 g/dL (3.5-5.0); Albumin Globulin Ratio 1.1 (1.0-2.8); Alkaline Phosphatase 201 U/L (38-126); Aspartate Aminotransferase 57 IU/L (17-59); BUN Creatinine Ratio 53.8 (6-22); Bilirubin Total 1.1 mg/dL (0.2-1.3); Blood Urea Nitrogen 43 mg/dL (9-20); Calcium 8.4 mg/dL (8.4-10.2); Carbon Dioxide 23 mmol/L (22-32); Chloride 102 mmol/L (98-107); Estimated Glomerular Filt Rate > 60.0 mL/min (>60); Globulin 2.9 g/dL (1.7-4.1); Glucose 104 mg/dL (80-110); HEMOLYSIS < 15 (0-50); Sodium 136 mmol/L (137-145); Total Protein 6.1 g/dL (6.3-8.2)
[2018-01-29 23:54] LABS: Potassium 5.3 mmol/L (3.4-5.1)
[2018-01-30] VITALS (12 sets, daily range): BP systolic 100–141; BP diastolic 54–70; PULSE 59–97; RESP 16–28; TEMP 36.5–36.9; O2SAT 85–100; BMI 26.8
--- NOTE | 2018-01-30 00:06 | DI.RAD.S_ITS ---
PROCEDURE: XR CHEST 1V INDICATIONS: fall, low oxygen TECHNIQUE: One view of the chest was acquired. COMPARISON: [facility], CR, XR SHOULDER LT MIN 2V, 10/04/2017, 20:41. [facility], CR, CHEST 1 VIEW, 06/19/2016, 9:01. [facility], CR, CHEST 2 VIEW, 07/06/2017, 13:34. FINDINGS: Surgical changes and devices: There is a cardiac pacemaker in expected position. Lungs and pleura: Increased pulmonary vascularity consistent with pulmonary edema secondary to congestive heart failure. Left basilar opacity may be consolidation or atelectasis. Suspect small left pleural effusion. No pneumothorax. Mediastinum: Mediastinal contours appear normal. Heart size is moderately increased. Bones and chest wall: Non acute left clavicular fracture is noted with overriding fracture fragments. Overlying soft tissues appear unremarkable. IMPRESSION: 1. Congestive heart failure. 2. Left basilar opacity may be superimposed pneumonia or atelectasis. 3. Nonacute left clavicular fracture. Dictated by: Katlin Arizmendi M.D. on 01/30/2018 at 8:46 Approved by: Katlin Arizmendi M.D. on 01/30/2018 at 8:50
[2018-01-30] MEDS: FUROSEMIDE 40 MG/4 ML VIAL IV (01:33)
--- NOTE | 2018-01-30 07:37 | PC.NURSE ---
Admit- Pt arrived from ER to room 212, oriented to facility. Pt has glasess and dentures at bedside. Daughter assists in admit. Multiple skin issues, documented in assessment. Rewrapped L arm, bleeding, old healing wound. Photos taken. Pt refuses change to LE's wraps. Can we try a little later Brusing to UE's and edema to all ext. Pt reports 40# wt loss since wifes in april. Dietary consult ordered. Pt is a/o x3, appropriate with all questions. 2L Spo2 95%, urinal after Lasix. Brief in place. No home O2 per Pt. Call into [facility] for pain medication and diet order. LONNIE active.
--- NOTE | 2018-01-30 15:34 | CM.DANOTE ---
Discharge Planning/Care Management DCP: assessment: case received, EMR reviewed and met with pt. Introduced self and role. (No H&P is yet available.) Pt is an 82 year old male who admitted early this mornin to care of [facility] physician team. UR RN Anjum confirms admission status: INPT. Payer: Medicare and [employer]. PCP: Dr. Kessler and pt says that he was told Dr. Kessler would see him tomorrow. PT and OT are not yet involved and tx plan at this point a bit unclear. Pt expresses his awareness of higher level of care needs. Perhaps a snf setting after hosptial for rehab recovery and then recommendation by the snf team for level of care need at [facility] would be helpful. DCP team will be following. CM Discharge Assessment Start: 01/30/18 15:27 Freq: Status: Active Protocol: Document 01/30/18 15:28 ITV (Rec: 01/30/18 15:33 ITV [id number]) Discharge Planning Assessment Advance Directives? Yes History Provided By Patient Medical Record Prior Living Arrangements Halfway Facility Facility Name Admitted From: [facility] Willing to Return to Facility? Says he needs more care and his family is looking into options. He has been Is patient alert and oriented? Yes: seems to be at time of conversation, but groggy DME Already Rented / Owned FWW / Walker Comment uses 4[facility] Admits to falling alot Whiteboard Updated in Patient Room with Yes name and ext. # of Academic Physician Review Status In Process Next Review Type Continued Stay Review
--- NOTE | 2018-01-30 15:36 | PC.NURSE ---
1400 verbal wound care orders per Dr Riley: josé antonio, secure with kerlex. QD and PRN. Dr Riley to order wound care consult. Wnd care to bilat lower extremities and to the left forearm done 1430.
[2018-01-30] MEDS: LISINOPRIL 5 MG TABLET PO (15:52)
[2018-01-30] MEDS: FUROSEMIDE 20 MG TABLET 60 MG PO (15:55)
[2018-01-30] MEDS: ROPINIROLE 4 MG TABLET 6 MG PO ×2 (15:55→21:55)
[2018-01-30] MEDS: CARBIDOPA-LEVODOPA ER 50/200 TABLET 1 EACH PO (15:55)
--- NOTE | 2018-01-30 17:45 | PC.NURSE ---
Wound Ostomy Nurse Consult Note Mr Gunderson awake and oriented. States that he falls frequently and [facility]. Hermosillo. He states that he does wear compression stocking, on in am and off in pm. He has a workforce investment act career manager that comes in to help him with his compression hose. has several open areas bi-lat on his lower extremities. He has telfa and kerlix secured with paper tape. I removed this dressing to observe his wounds. The larges of the wounds measure [id number]. The wounds all have attached edges and some slough. They are draining a small amount of serosanguenous drainage. He does have hemosiderin staining bi-lat. He does have some bi-lateral edema 1+ pitting edema. I asked if he has been told he has Venous Insufficiency and he said yes. I replaced his dressing with Adaptic over the wounds then Telfa and Kerlix secured with paper tape. I would recommend a daily dressing change and recommend he follow up for wound care and Venous Insufficiency management.
--- NOTE | 2018-01-30 18:35 | PC.NURSE ---
Addendum entered by Javier Coronel 01/30/18 22:18: Patient's breathing has improved. O2 hovering around 94% but respirations are less labored. This student nurse notice the patients Parkinson's tics were more noticeable and it was communicated to the patient. The patient stated that it always gets worse this time of night. The patient brought up his again and talked about her passing. It was also mentioned that he was going to go to a rehab facility after discharge from this hospital. This student nurse asked about the patients pain level and he stated he was not in any pain. The TITRATOR and this student nurse assisted the patient up from the bed into the recliner. The patient had his gown and brief changed, as well as his bed linens. The patient is having some urinary incontinence. He notices he has to urinate but cannot hold it for very long. This student nurse asked if he wore briefs at home and he stated no he did not. The patients daughter came to visit and it was asked if his shortness of breath was normal and she stated that it was his normal. Original Note: Student nurse note: This student nurse noted an abnormal breathing pattern in the physical assessment. The TITRATOR assisted this student nurse in assisting the patient to stand. Patient was slightly off balance and stated he was scared of falling. His backside was checked by this student nurse and bruising was noted on the left lower thorax. There was no evidence of pressure ulcers. When asked about pain he stated his L hip was a 5 and everywhere else was a 9. I asked if he would like pain medication and he stated No. He also made a statement about getting to see his again soon, who had left him a . Patients 02 is hovering around 93% still.
--- NOTE | 2018-01-30 18:50 | PM.HP.1 ---
History of Present Illness Date Patient Seen: 01/30/18 Time Patient Seen: 13:11 Chief complaint: FALL BACK IS KILLING HIM Narrative: Patient is a 82-year-old male with multiple medical problems with Parkinson's being the biggest issue who has been having increasing falls without other changes. in the last year. Now living it assisted living. Has had increasing falls. Tends to be tripping or sometimes just falling. Workup has not been significant. Patient otherwise has been doing about the same as he usually does. No major other issues. Apparently he was in his usual state of health until yesterday when he was coming out of a neighbor's room and fell over backwards hitting a window with his back. Main complaint is back pain and buttock pain. Was unable to get up and move was brought to the emergency room. He has not been taking his Lasix recently because he has trouble getting to the bathroom. No other major issues. No fevers or chills. Did not lose consciousness. No headache. No visual symptoms. No neck pain. Apparently when he was in the emergency room when he got up to move he dropped his sats quite a bit. Seems to be doing a little better today. No other changes. Longstanding history of leg ulcers. Having difficulty taking care of these. No other changes. Patient has not had any rectal bleeding that he knows of. No vomiting or other change. He has not had any black or tarry stools. He has not really had any abdominal pain or other changes. Past medical history significant for Parkinson's disease Atrial fibrillation Coumadin is stopped secondary to fall risk Diabetes mellitus Hypertension Coronary artery disease History of GI bleed Past surgical history cardiac stent right coronary 2009 Left ganglion cyst Left carpal tunnel [place] single-chamber pacemaker 12 16 Family history is noncontributory to current admission Social history children are very supportive and here in town. Living at [facility] Patient History Medical History Parkinson disease (Chronic) Family & Social History Family History: Reviewed 01/30/18 by Red Kessler MD Social History: Prior Living Arrangements Longterm Facility Safety & Behavioral: Feels Safe in Current Yes Environment Been Physically Hurt or No Threatened By a Person Suicidal Ideation Description None Suicide Plan Description No Plan Tobacco & Substance use: Smoking Status Former smoker alcohol intake frequency a few times a week Substance Use Type does not use Meds Home Medications Medication Instructions Recorded Confirmed Type spironolactone 25 mg PO QDAY #0 05/10/11 01/30/18 History atorvastatin [Lipitor] 40 mg PO HS #0 12/20/11 01/30/18 History carbidopa-levodopa 1 tab PO DIRECTED 12/22/17 01/30/18 History carbidopa-levodopa 1 tab PO Q4H 12/22/17 01/30/18 History carvedilol 1 tab PO BID 12/22/17 01/30/18 History furosemide 60 mg PO DAILY 12/22/17 01/30/18 History lisinopril 5 mg PO DAILY 12/22/17 01/30/18 History ropinirole [Requip] 2 tab PO TID 12/22/17 01/30/18 History hydrocodone-acetaminophen [[place]] 1 tab PO Q6H PRN #10 tab 01/29/18 Rx Allergies Allergy/AdvReac Type Severity Reaction Status Date / Time No Known Drug Allergies Allergy Verified 01/29/18 21:50 Review of Systems Review of Systems All systems reviewed & are unremarkable except as noted in HPI and below Exam Vital Signs (past 8 hours): - 01/30/18 12:45 01/30/18 15:00 01/30/18 15:45 Temperature 97.9 F 98.4 F Pulse Rate 97 H 61 Respiratory Rate 24 18 Blood Pressure 134/60 133/70 Pulse Oximetry 97 93 95 01/30/18 15:52 Temperature Pulse Rate 61 Respiratory Rate Blood Pressure 133/70 Pulse Oximetry Oxygen Delivery Method Room Air Oxygen Flow Rate 2 Narrative Exam Narrative: Alert elderly male fatigued in appearance lying in bed with difficulty moving. Bulbar conjunctiva were pale. Eyes otherwise unremarkable. Mucous membranes are mildly dry. Neck is supple without adenopathy. No thyromegaly or other changes. Lungs are clear. Heart is regular rate and rhythm in the 70s. Abdomen is soft positive bowel sounds nontender. Extremities show moderate wounds 3 ulcers on both legs. With 1+ edema. Decreased capillary refill feet neurologic exam shows Parkinson's features which are usual for him without change. Nonfocal. Back shows tenderness in the L3-L4 area and in the sacrum. No step-off crepitus moderate bruising. Patient has moderate bruising around the left lateral hip and into the knees hips and knees are otherwise not unremarkable on exam. Objective Labs Result Diagrams: 01/29/18 22:30 01/29/18 22:30 Labs: Laboratory Results - last 24 hr 01/29/18 01/29/18 01/29/18 22:30 22:30 22:30 WBC 9.4 RBC 3.62 L Hgb 10.7 L Hct 32.7 L MCV 90.3 MCH 29.6 MCHC 32.8 RDW 15.4 H Plt Count 266 Neut % (Auto) 86.2 H Lymph % (Auto) 4.7 L [place] % (Auto) 7.5 Eos % (Auto) 1.1 L Baso % (Auto) 0.5 Neut # (Auto) 8100 H Sodium 136 L Potassium 5.3 H Chloride 102 Carbon Dioxide 23 BUN 43 H Creatinine 0.80 Estimated GFR > 60.0 BUN/Creatinine Ratio 53.8 H Glucose 104 Calcium 8.4 Total Bilirubin 1.1 AST 57 ALT 15 L Alkaline Phosphatase 201 H Troponin I 0.030 B-Natriuretic Peptide Total Protein 6.1 L Albumin 3.2 L Globulin 2.9 Albumin/Globulin Ratio 1.1 01/29/18 22:30 WBC RBC Hgb Hct MCV MCH MCHC RDW Plt Count Neut % (Auto) Lymph % (Auto) [place] % (Auto) Eos % (Auto) Baso % (Auto) Neut # (Auto) Sodium Potassium Chloride Carbon Dioxide BUN Creatinine Estimated GFR BUN/Creatinine Ratio Glucose Calcium Total Bilirubin AST ALT Alkaline Phosphatase Troponin I B-Natriuretic Peptide 829.0 H Total Protein Albumin Globulin Albumin/Globulin Ratio Assessment & Plan Plan: Assessment/Plan Narrative: Anemia new. Etiology is unclear. No evidence of blood loss. Will obtain iron studies B12 folate and guaiac stool re-evaluate in a.m.. It is possible his anemia secondary to bruising I do not see that much but he has had multiple bruises in the past. Hypoxia acute. Probably a combination of anemia and not taking his Lasix. No evidence of pneumonia or other abnormality. Seems to be better today will see what happens as we follow over the next 24 hr. Frequent falls. This is his main issue. I am not sure how our going to readdress this I think this has a lot to do with his Parkinson's and lack of insight into his movement. At this point will continue to follow continue off of Coumadin. Severe back pain with inability to move. Does not appear to be a fracture although may not show up on x-ray. May need to evaluate sacrum. We will see how he mobilizes with physical therapy with his strength in that being and will follow. May need rehab. Will try pain control with oral medication may need stronger. We will see how things go. Hyperkalemia. Probably does he was not taking his Lasix. Will give Lasix and re-evaluate. Coronary artery disease appears stable I do not think he has had an ME or other issue will follow. Type 2 diabetes diet controlled will check sugars and follow. Hyperlipidemia will continue his Lipitor DVT prophylaxis on Lovenox. GI prophylaxis not needed at this time. Will see what workup of GI and anemia does. Code status. No code. Longstanding. Disposition. Hard to tell. May respond to treatment will need to see what his acute blood-loss is and see how he responds to pain control. Mobilize with physical therapy will take probably 2-3 days depends on how things go.
[2018-01-30 19:13] LABS: Reticulocyte Count, Percent 1.2 % (0.87-2.60)
[2018-01-30 19:29] LABS: HEMOLYSIS < 15 (0-50); Iron 34 ug/dL (49-181)
[2018-01-30] MEDS: CARBIDOPA-LEVODOPA 25/100 TABLET 1 EACH PO ×2 (19:38→21:56)
[2018-01-30 19:39] LABS: Percent Iron Saturation 13 % (20-50); Total Iron Binding Capacity 252 ug/dL (261-462); Transferrin 172 mg/dL (206-381)
[2018-01-30 20:38] LABS: Vitamin B12 668 pg/mL (239-931)
[2018-01-30] MEDS: CARVEDILOL 6.25 MG TABLET PO (21:56)
[2018-01-30] MEDS: ATORVASTATIN 20 MG TABLET 40 MG PO (21:57)
[2018-01-31] VITALS (11 sets, daily range): BP systolic 110–128; BP diastolic 45–72; PULSE 61–63; RESP 16–20; TEMP 36.2–36.7; O2SAT 91–96; BMI 26.8
[2018-01-31 06:09] LABS: Add Manual Diff / Slide Review NO; Basophils Percent Auto 0.6 % (0-2); Eosinophils Percent Auto 1.2 % (2-4); Hematocrit 32.2 % (41-53); Hemoglobin 10.8 g/dL (13.5-17.5); Lymphocytes Percent Auto 7.4 % (25-40); Mean Corpuscular HGB Conc 33.5 % (30-36); Mean Corpuscular Hemoglobin 29.9 PG (26-34); Mean Corpuscular Volume 89.2 fL (80-100); Monocytes Percent Auto 9.8 % (3-14); Neutrophils Absolute Auto 6900 /uL (3000-5900); Platelet Count 248 X10^3/uL (150-400); Red Blood Cell Count 3.62 X10^6/uL (4.5-5.9); Red Cell Distribution Width 15.5 % (11.6-14.8); White Blood Cell Count 8.5 X10^3/uL (4.5-11.0)
[2018-01-31 06:37] LABS: BUN Creatinine Ratio 57.1 (6-22); Blood Urea Nitrogen 40 mg/dL (9-20); Calcium 8.3 mg/dL (8.4-10.2); Carbon Dioxide 26 mmol/L (22-32); Chloride 103 mmol/L (98-107); Estimated Glomerular Filt Rate > 60.0 mL/min (>60); Glucose 90 mg/dL (80-110); HEMOLYSIS < 15 (0-50); Potassium 4.4 mmol/L (3.4-5.1); Sodium 136 mmol/L (137-145)
[2018-01-31] MEDS: ENOXAPARIN 40 MG/0.4 ML SYRINGE SUBCUT (08:33)
[2018-01-31] MEDS: ROPINIROLE 4 MG TABLET 6 MG PO ×3 (08:34→21:03)
[2018-01-31] MEDS: CARBIDOPA-LEVODOPA ER 50/200 TABLET 1 EACH PO (08:35)
[2018-01-31] MEDS: LISINOPRIL 5 MG TABLET PO (08:39)
[2018-01-31] MEDS: CARBIDOPA-LEVODOPA 25/100 TABLET 1 EACH PO ×4 (08:40→21:02)
--- NOTE | 2018-01-31 08:41 | PM.PN.1 ---
Subjective Date Patient Seen: 01/31/18 Time Patient Seen: 08:42 Interval history: Patient overall is feeling well. Feeling better than yesterday. Only having pain mostly when he moves. Did get up and move around a little bit yesterday. Feeling slightly stronger. Still fatigued. No chest pain. Dropped into the 80s last night. No other significant change. No chest pain. No cough. Exam Vital Signs (past 8 hours): - 01/31/18 03:20 Temperature 98.1 F Pulse Rate 61 Respiratory Rate 20 Blood Pressure 128/57 L Pulse Oximetry 93 Oxygen Delivery Method Nasal Cannula Oxygen Flow Rate 2 Narrative Exam Narrative: Alert elderly male still looks pale in no acute distress. Mucous membranes moist. Neck is supple without adenopathy. Lungs are clear. Heart regular rate and rhythm at 60 or 70 per. Abdomen is soft positive bowel sounds nontender. Extremities are wrapped but does still have 1+ edema. Neurologic exam is unchanged. Objective Labs Result Diagrams: 01/31/18 05:38 01/31/18 05:38 Labs: Laboratory Results - last 24 hr 01/30/18 01/30/18 01/30/18 19:01 19:01 19:01 WBC RBC Hgb Hct MCV MCH MCHC RDW Plt Count Neut % (Auto) Lymph % (Auto) [place] % (Auto) Eos % (Auto) Baso % (Auto) Neut # (Auto) Percent Retic 1.2 Sodium Potassium Chloride Carbon Dioxide BUN Creatinine Estimated GFR BUN/Creatinine Ratio Glucose Calcium Iron 34 L TIBC 252 L % Saturation 13 L Transferrin 172 L Vitamin B12 668 Folate 16.0 01/31/18 01/31/18 05:38 05:38 WBC 8.5 RBC 3.62 L Hgb 10.8 L Hct 32.2 L MCV 89.2 MCH 29.9 MCHC 33.5 RDW 15.5 H Plt Count 248 Neut % (Auto) 81.0 H Lymph % (Auto) 7.4 L [place] % (Auto) 9.8 Eos % (Auto) 1.2 L Baso % (Auto) 0.6 Neut # (Auto) 6900 H Percent Retic Sodium 136 L Potassium 4.4 Chloride 103 Carbon Dioxide 26 BUN 40 H Creatinine 0.70 Estimated GFR > 60.0 BUN/Creatinine Ratio 57.1 H Glucose 90 Calcium 8.3 L Iron TIBC % Saturation Transferrin Vitamin B12 Folate Assessment & Plan Plan: Assessment/Plan Narrative: Anemia new. Appears to be secondary to iron deficiency. Guaiac negative on exam. May be dietary. Hard to tell at this point. No evidence of GI loss at this time. Will follow. Add iron and re-evaluate. If he does not replaced over the next 4-6 weeks. Will need to consider GI evaluation. Will have to discuss with him and family how aggressive we want to be at this point does not appear to be needed. Hypoxia acute. Still having desaturations at night. May be sleep apnea. Hard to tell at this point. Could be with his BNP elevated that this represents left heart congestive heart failure systolic will have to see how he does. Will increase his Lasix to 20 IV b.i.d. see if that makes any difference. May have to go home on oxygen at night. Hyperkalemia. Resolved with Lasix. Will recheck labs in a.m.. Frequent falls. This is his main issue. Continues to be a major issue. We will see what PT thinks. Will need rehab without question. Question is where not he can go back to a minimally supervised living situation or needs higher level of care. It is my belief that he needs more assisted living with 24 hr nursing care. We can see what happens but that would be best for him in my opinion. Clearly failing his current living situation. I believe this is a combination of his lack of insight into his movement disorder and his Parkinson's progression. Severe back pain with inability to move. X-ray show no abnormality pain control is good at this point. May need to evaluate sacrum depending on how he does but if he mobilizes and does well with pain control no further workup Congestive heart failure systolic. Acute on chronic. Increase Lasix today IV and follow output over the next 24 hr. BNP in the morning. Coronary artery disease appears stable I do not think he has had an RI or other issue will follow. Type 2 diabetes diet controlled will check sugars and follow. Hyperlipidemia will continue his Lipitor DVT prophylaxis on Lovenox. GI prophylaxis not needed at this time. Will see what workup of GI and anemia does. Code status. No code. Longstanding. Disposition. Clearly will need another couple days here for continued care. Will expect rehab will be required at [facility]. I believe he is going to need higher level assisted care and will have very low ability to go back to his current living situation but will see how the next 24-48 hours and Rehab does. Discussed with Justo. He understands. May need to go home with oxygen.
[2018-01-31] MEDS: FUROSEMIDE 20 MG/2 ML VIAL IV ×2 (08:49→21:09)
--- NOTE | 2018-01-31 09:02 | CM.DPC ---
DCP Cont: Spoke with Dr. Kessler today. He is in agreement that patient may need skilled upon discharge. [facility] independent [facility], and after talking to daughter over the phone, she stated that he has had a few falls living there. Discussed [facility] with daughter, and she is in agreement. Daughter will come by today and meet with this meeting/event planner to discuss options. P: DCP to continue to follow closely, and will meet with daughter to discuss plan. Evelyn Rangel RN/[place] [employer]
--- NOTE | 2018-01-31 10:20 | PT.IIE ---
Addendum entered and electronically signed by Kaylen Delong, PT 01/31/18 13:48: This is to certify that I have reviewed this documentation and POC. Original Note: Current Diagnoses Low back pain (01/30/18) Medical History (Last Reviewed 01/30/18 @ 18:56 by Red Kessler MD) Parkinson disease (Chronic) Physical Therapy Inpatient Evaluation/Re-Eval M1 PT/OT-IP Prior Functional Status Start: 01/31/18 11:04 Freq: NEEDED Status: Active Protocol: Document 01/31/18 10:20 (Rec: 01/31/18 11:42 [email or web address]) Medical Review Prior Functional Status Medical History Reviewed Yes Communication Previous deficits not explicitly stated. Pt with Parkinson's. Has slightly slurred speach. Mobility and Gait Previously ambulates with 4ww for all ambulation. Ambulation tolerance stated as ~15 mins before needing a rest. Activities of Daily Living and IADL's Pt states independently able to shower, and toilet. HH helps him get dressed in the mornings. Prior Functional Level (Other details) Pt with significant fall history. At least 10 in the last month; 2 of which with significant injury. Usually his falls are due to LOB backwards. When asked again, he stated his his falls are usually when he tries to walk without his 4ww and he falls forwards. Social History Household Members none Living Arrangements Snf Facility Number of Floors (Floors) One Floor Number of Stairs To Enter/Railing? None Home Environment Standard Height Toilet Walk in Shower Built-In Shower Seat Home Equipment Four Wheel Walker Straight Cane Hand Held Shower [facility] Bed Grab Bars Near Toilet Grab Bars In Shower Additional Social History Comment [facility]. His daughters visit him intermittently to help with shopping, driving him to appointments etc. He has home health in the mornings to assist with dressing. His daughters are currently looking for a rehab facility for him. M2 PT-IP Current Condition Start: 01/31/18 11:04 Freq: NEEDED Status: Active Protocol: Document 01/31/18 10:20 (Rec: 01/31/18 11:42 [email or web address]) Physical Therapy Current Condition Current Condition Evaluation Date 01/31/18 Treatment Diagnosis GLF; LBP; Parkinsons; Difficulty walking Onset Date 01/30/18 Precautions Lumbar Precautions Log Roll No Twisting Limit Bending Lifting Restriction of 10 lbs Gait Belt above Incisional Area Other Precautions Fall risk Pt does not have formal orders for lumbar precautions but pt is advised to protect his back with standard lumbar precautions as above. M3 PT-IP Subjective Start: 01/31/18 11:04 Freq: NEEDED Status: Active Protocol: Document 01/31/18 10:20 (Rec: 01/31/18 11:42 [email or web address]) Subjective Physical Therapy Visit Type Type Initial Evaluation Visit Start Time 10:20 Visit Stop Time 10:54 Total Visit Minutes 34 Number of GLOBAL MARKETING COORDINATOR Visits 0 Physical Therapy Visit Comments Patient Comments Pt agreeable to mobilize with PT. Patient Goals Pt is aware his daughters are looking for an appropriate SNF . He is agreeable to this. Therapy Pain Assessment Pain When Pain Assessed During Mobility Pain Present Pain Present Pain Reported Location Lower Back Scale Used 5/10 stated as constant. Pain Behaviors Calling Out Facial Grimacing Pain Management Techniques Modification of Treatment Re-positioning Timing of Activity with Medications M4 PT-IP Mobility and Gait Start: 01/31/18 11:04 Freq: NEEDED Status: Active Protocol: Document 01/31/18 10:20 (Rec: 01/31/18 11:42 [email or web address]) PT-Bed Mobility Assessment Rolling Type of Rolling Log Rolling Roll to Right Level of Assist Standby Assistance Supine to Sit Supine to Sit Minimal Assistance 1 Person Assistance Bedrails Sit to Supine Sit to Supine Standby Assistance Scooting Scooting to Edge of Bed Standby Assistance Scooting Up and Down in Bed Standby Assistance PT-Transfer Assessment Sit to and From Stand Sit to and from Stand Contact Guard Assistance Minimal Assistance Equipment Transfer Assistive Device Bed Rail Front Wheeled Walker Orthotic/Prosthetic Devices or Brace: No Transfers Transfer Destination Bed Chair Toilet Transfer Technique Ambulates between surfaces Comments Mobility Comments Pt initially seated up in recliner and asks to use the toilet. He performs sit to stand from recliner with minAx 1. (ambulates to toilet see below) Sit <> stand from toilet is Jyoti X1 using L grab bare and fww. Pt requires assist with hygeine care and changing his brief. (pt ambulates to bed see below). Sit <> stand from EOB pt uses fww CGA. Pt needing min cues for avoiding walker to push off, and to scoot to EOB/chair to improve mechanics of sit < > stand. Sit <> side lying is Jyoti x1 with cues for hand placement. Log rolling is SBA and despite max cues for technique, pt has difficulty with coordination, unable to complete appropriately, and has moments of increased pain during log roll. Gait Assessment Gait Gait Assistance Required: Minimum Assistance Distance (Feet) 15 Able to Maintain Weight Bearing Status Yes During Gait Assistive Devices Assistive Device Gait Belt Front Wheeled Walker Orthotic/Prosthetic Devices or Brace: No Gait Deviations General Gait Pattern Decreased Stride Length Decreased Feet Clearance Flexed Trunk Narrow Based Gait Wide Based Gait Factors Limiting Gait Function Factors Limiting Gait Function Abnormal Tonal Influences Decreased Activity Tolerance Decreased Strength Incoordination Limited Range of Motion Pain Poor Balance Poor Safety Awareness Comments Gait Comments Pt ambulates 15 + 15 + 5 ft in room with fww and Jyoti x1 for steadying as well as occasional assist managing fww . Despite mod cues, he tends to leaf size picker fww and push it far out in front of him. Gait pattern demonstrates significant variability in step width, length and height. Pt also demonstrates significant tremor and forward flexed posture with all ambulation. PT-Balance Assessment Sitting Balance and Reactions Static Sitting Balance Ability Good Dynamic Sitting Balance Ability Fair Standing Balance and Reactions Static Standing Balance Ability Fair Dynamic Standing Balance Ability Poor Device Used fww M5 PT-IP Objective Assessments Start: 01/31/18 11:04 Freq: NEEDED Status: Active Protocol: Document 01/31/18 10:20 (Rec: 01/31/18 11:42 [email or web address]) Orientation Orientation/Cognition Level of Alertness Alert Orientation Name Birthday Place Situation Safety Awareness Decreased Safety Awareness Comments Pt impulsive, requiring multiple cues to wait for PT to assist Strength Comments Strength Comments Not formally tested. Functionally decreased as observed with need for physical assist with sit <> stand from lower surfaces. Other Assessments Other Other Assessments Pt demonstrates constant tremors, and writhing tone in BLE, trunk and face. M6 PT-IP Treatment Start: 01/31/18 11:04 Freq: NEEDED Status: Active Protocol: Document 01/31/18 10:20 (Rec: 01/31/18 11:42 [email or web address]) Physical Therapy Treatment Education Education Provided Precautions Safety M7 PT-IP Assessment and Plan Start: 01/31/18 11:04 Freq: NEEDED Status: Active Protocol: Document 01/31/18 10:20 (Rec: 01/31/18 11:42 [email or web address]) PT Summary Assessment and Plan Potential Rehabilitation Potential Fair Status of Condition at Evaluation Evolving Summary Impairments Pain ROM Strength Balance Coordination Tone Cognition Bed Mobility Transfers Gait Activity Tolerance Progress Towards Goals Slow Progress due to Pain Slow Progress due to Medical Issues Slow Progress due to Activity Tolerance Assessment Summary Pt s/p GLF (fall backwards) with difficulty walking and high fall risk. He was able to ambulate 15 ft in room with fww and minAx1 demonstrating signficant variability and tremor with gait pattern and difficulty managing fww. He is requiring Jyoti for sit <> stand transfers and bed mobility. Pt also demonstrating impulsivity and poor safety awareness increasing his fall risk. At this time, recommend d/c to SNF due to pt impaired mobilities and need for assist . Goals Bed Mobility Goal Standby Assistance Transfer Goal Standby Assistance Front Wheeled Walker Gait Goal Standby Assistance Front Wheel Walker Gait Distance 100 Days to Meet Goals 5 Frequency of Treatment Frequency Of Treatment Once a Day Treatment Plan Physical Therapy Treatment Plan Bed Mobility Training Transfer Training Gait Training Therapeutic Exercise Balance Retraining Discharge Planning Hot or Cold Pack Neuromuscular Re-ed Coordination Retraining Manual Therapy Other Recommendations and Next Treatment Continue training with log Focus roll. Progress ambulation. 4ww ambulation as appropriate. Recommendations To Nursing Amount of Assist Needed 2 Person Assist Discharge Recommendations PT Discharge Recommendations SNF Rehab
[2018-01-31] MEDS: FERROUS GLUCONATE 324 MG TABLET PO ×2 (11:16→18:50)
--- NOTE | 2018-01-31 11:44 | CM.DPC ---
Addendum entered by Evelyn Rangel R.N. 01/31/18 11:52: Daughter, Nicole, just stopped by care management office. Stated that he is willing to go. She stated that she would transport him there. Original Note: DCP Cont: Met with both of patient's daughters to discuss safe discharge plan. Patient has been living at [facility], which is independent living. According to daughters, patient has been falling about once a week. They are not allowed to lift patient, so they have been having to call EMS. Patient has history of Parkinsons, which has been contributing to his fall. After discussion with daughters, they decided that the best custodial plan would be for patient to go to [facility]. Stated that they have 6 levels of care there, and that patients can stay there until the end of life. For short term, daughter Nicole has decided that [facility] would be the best choice, for it is near [facility], and one of the daughters live in that area. They stated that they would be talking to their dad about this today. Called [facility] and spoke with Lynne. Stated that they should have bed availablity on Monday/Monday. Patient has Medicare/AARP. They know that he should be eligible by Monday. Faxed over clinical information to [facility] for review. P: DCP to continue to follow. Will communicate plan with Dr. Kessler. [facility] to [facility], [facility]. Evelyn Rangel RN/Flour Blender
--- NOTE | 2018-01-31 13:50 | OT.IP.EVAL ---
Current Diagnoses Low back pain (01/30/18) Past Medical History (Last Reviewed 01/30/18 @ 18:56 by Red Kessler MD) Parkinson disease (Chronic) Occupational Therapy Inpatient Evaluation/Re-Eval M1 PT/OT-IP Prior Functional Status Start: 01/31/18 11:04 Freq: NEEDED Status: Active Protocol: Document 01/31/18 13:50 PJM (Rec: 01/31/18 14:27 [facility] [id number]) Medical Review Prior Functional Status Diet/Fluid Consistency Mechanical Soft Communication WFL, dysarthric speech noted Mobility and Gait Pt states he ambulated with 4WW in his apartment but was falling about 1x week per daughter. Activities of Daily Living and IADL's Pt was independent with eating , grooming, showering and toileting. He had paid caregiver assist from [facility] [employer] for 30 min, 7 days/week to assist with dressing in AM PRN. Prior Functional Level (Other details) Two meals/day provided. Pt sets up own pill box. Daughters assist with finances , laundry, shopping, transport . Social History Household Members none Living Arrangements Longterm Facility Number of Floors (Floors) One Floor Number of Stairs To Enter/Railing? None Home Environment Standard Height Toilet Walk in Shower Built-In Shower Seat Home Equipment Four Wheel Walker Straight Cane Hand Held Shower [employer] [facility] Bed Grab Bars Near Toilet Grab Bars In Shower Employment Status Retired Additional Social History Comment Pt living at [facility] facility. M2 OT-IP Current Condition Start: 01/31/18 13:56 Freq: Status: Active Protocol: Document 01/31/18 13:50 PJM (Rec: 01/31/18 14:27 [facility] [id number]) Occupational Therapy Current Condition Current Condition Evaluation Date 01/31/18 Treatment Diagnosis decreased self care, functional mobility s/p fall, severe LBP, Parkinsons Diagnosis Onset Date 01/30/18 Post Operative Precautions Lumbar Precautions Log Roll No Twisting Limit Bending Lifting Restriction of 10 lbs Gait Belt above Incisional Area Other Precautions Fall risk Pt does not have formal orders for lumbar precautions but pt is advised to protect his back with standard lumbar precautions as above. M3 OT- IP Subjective and Pain Start: 01/31/18 13:56 Freq: Status: Active Protocol: Document 01/31/18 13:50 PJM (Rec: 01/31/18 14:27 PJ [id number]) OT- Subjective Occupational Therapy Visit Type Type Initial Evaluation Visit Start Time 13:10 Visit Stop Time 13:50 Total Visit Minutes 40 Notes Pt's daughterMaricarmen, observing this session. Occupational Therapy Visit Comments Patient/Caregiver Goals to go to rehab and then to assisted living where he will have more help OT Pain Assessment Pain When Pain Assessed At Rest Pain Present Pain Present Denied Pain M4 OT- IP ADL's Start: 01/31/18 13:56 Freq: Status: Active Protocol: Document 01/31/18 13:50 PJM (Rec: 01/31/18 14:27 PJ [id number]) OT POL-[id number] General Evaluation Self-Feeding Ability Independent Comments OT Self-Feeding Comments Pt can feed self after set up with R hand, but min spilling noted. OT ADL-Grooming General Evaluation Grooming Ability Standby Assistance Areas Needing Assistance Face Washing Comments OT Grooming Comments after set up seated in chair OT ADL-Oral Care Comments Oral Care Comments to be assessed OT ADL-Dressing General Eval Upper Body Dressing Ability Minimal Assistance Lower Body Dressing Ability Contact Guard Assistance Areas Needing Assistance Socks Comments OT Dressing Comments Min assist to change gown and CGA for safety when reaching to feet to don/doff socks in chair. Began education re: LE dressing equipt options to increase safety. OT ADL-Toileting General Evaluation Toileting Ability Maximum Assistance Comments OT Toileting Comments per P.T. notes OT ADL-Bathing Devices Bathing Equipment Hand Held Shower Sprayer Shower Chair with Arms Grab Bars Comments OT Bathing Comments to be assessed M5 OT- IP IADL's Start: 01/31/18 13:56 Freq: Status: Active Protocol: Document 01/31/18 13:50 PJM (Rec: 01/31/18 14:27 PJ [id number]) OT-Instrumental Activities of Daily Living Deficits IADL Deficits Identified Deficits Home Safety Awareness Awareness of Need for Assistance at Home Good Awareness Medication Management Medication Management No Deficits Identified Medication Management Comments Pt sets up own pillbox accurately at home per daughter. Money Management Money Management Caregiver Provides Assistance Money Management Comments Daughters assist with writing checks due to inability to write and low near vision Meal Preparation Meal Preparation Caregiver Provides Assist Meal Preparation Comments Two meals/day provided at patient's facility. Principal Secretary Principal Secretary Caregiver Provides Assist Principal Secretary Comments Pt has housekeeping assist 1x week; daughters assist with shopping and laundry. Driving Driving Caregiver Provides Assist Driving Comments Pt no longer drives. M6 OT- IP Functional Cognition Start: 01/31/18 13:56 Freq: Status: Active Protocol: Document 01/31/18 13:50 PJM (Rec: 01/31/18 14:27 PJM [id number]) Cognitive Factors Limiting Selfcare Function Cognitive Ability Level of Alertness Drowsy Patient Orientation Name Age Birthday Month Date Year Day of Week Place Situation Attention Span Ability Capable of Focused Attention Ability to Follow Commands Able to Follow One Step Commands Cognitive Comments Cognitive Assessment Comments Pt drowsy this session with eyes closing periodically and decreased sustained attention, but alerts easily to voice. Pt pleasant and cooperative. OT- Vision and Hearing OT- Hearing Assessment OT- Hearing Assessment WFL OT- Vision Assessment Vision History Cataracts Macular Degeneration Visual Attentiveness WFL Vision Assessment Comments Pt s/p B cataract surgery and can read wall clock without glasses. He uses glasses to watch TV and when out in community. M.D. has impaired near vision per pt. M7 OT- IP Mobility and Balance Start: 01/31/18 13:56 Freq: Status: Active Protocol: Document 01/31/18 13:50 PJM (Rec: 01/31/18 14:27 PJ [id number]) OT-Transfer Assessment Comments Mobility Comments See P.T. notes OT- Gait Assessment Comments Gait Ability Comments See P.T. notes OT- Balance Assessment Sitting Balance and Reactions Static Sitting Balance Ability Good Dynamic Sitting Balance Ability Fair M8 OT- IP Objective Assessments Start: 01/31/18 13:56 Freq: Status: Active Protocol: Document 01/31/18 13:50 PJM (Rec: 01/31/18 14:27 PJ [id number]) OT Gross Range of Motion Upper Extremity Range of Motion Assessment Bilaterally Impaired ROM Impairments RUE: Shoulder scaption to 45 degrees due to old injury. Pt has had R Dupytren's release with residual 5th finger PIP flexion contracture to 45 degrees. Other AROM WFL in RUE. LUE: Shoulder scaption to 90 degrees due to old clavicle fx. Pt has untreated Dupytren's contracture with MP flexion contracture in 4th, 5th fingers to 45. Other AROM WFL in LUE. 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 M9 OT- IP Assessment and Plan Start: 01/31/18 13:56 Freq: Status: Active Protocol: Document 01/31/18 13:50 PJM (Rec: 01/31/18 14:27 PJM [id number]) OT Summary Assessment and Plan Potential Rehabilitation Potential Good Analytic Complexity at Evaluation Low Summary OT Impairments Balance Coordination Functional Mobility Grooming Dressing Toileting Bathing Toilet Transfers Shower Transfers Assessment Summary Low complexity OT assessment completed on this pt with Parkinson's disease and weakly falls at home admitted with severe back pain, now improved . Note pt was hypotensive this session with BP 86/39 HR 59, sitting with legs down for lower body dressing. Reclined pt and elevated legs with BP up to 93/38, HR 60. Pt asymptomatic. RN notified and came to room to further assessed pt. Pt currently has performance deficits in balance, all functional mobility, transfers, standing grooming and dressing, bathing and toileting. Pt is below his baseline level of function and is not safe to return to living alone in independent senior apartment. Pt will benefit from OT services here to address the goals at home. Recommend SNF at discharge with equipment operator intermodal yard goal of transition to assisted living facility. Goals Grooming Goal Standby Assistance Dressing Goal Standby Assistance Toileting Goal Standby Assistance Bathing Goal Minimal Assistance Grab Bars Hand Held Shower Sprayer Long Handled Sponge or [place] Toilet Transfer Goal Standby Assistance Shower Transfer Goal Contact Guard Assistance Patient/Caregiver Education Goal Demonstrate Energy Conservation and Pacing OT-Other Goals Grooming to be done standing at sink. LB dressing to be done with SBA and no loss of balance noted. Days to Meet Goals 5 Frequency of Treatment Frequency Of Treatment Once a Day Treatment Plan OT Treatment Plan ADL Training Functional Mobility Patient/Family Education Discharge Planning Discharge Recommendations OT Discharge Recommendations SNF Rehab Other Discharge Recommendations detention goal of transition to assisted living
[2018-01-31] MEDS: ATORVASTATIN 20 MG TABLET 40 MG PO (21:02)
[2018-01-31] MEDS: SODIUM CHLORIDE 0.9% FLUSH 10 ML IV (21:04)
--- NOTE | 2018-01-31 21:35 | PC.NURSE ---
Addendum entered by Javier Coronel 01/31/18 22:44: Patient was assisted from the chair into the bed. He chose to walk around the long way to get into bed so he can exercise. He did well walking and did not state he was scared to fall. He denied pain. The patients dentures are in a cup by sink. Original Note: Addendum entered by Javier Coronel 01/31/18 21:50: Patient has been diagnosed with anemia and has been started on an iron supplement. He is still slightly SOB but it has noticeably improved since yesterday evening. Original Note: Student nurse note: Patient is sitting up in chair with feet elevated. Some edema is present in lower extremities. Patient ate most of his evening meal without assistance.
[2018-02-01] VITALS (9 sets, daily range): BP systolic 100–138; BP diastolic 41–83; PULSE 60–63; RESP 18–20; TEMP 36.3–36.7; O2SAT 91–97
[2018-02-01 06:12] LABS: Add Manual Diff / Slide Review NO; BUN Creatinine Ratio 51.4 (6-22); Blood Urea Nitrogen 36 mg/dL (9-20); Calcium 8.5 mg/dL (8.4-10.2); Carbon Dioxide 28 mmol/L (22-32); Chloride 102 mmol/L (98-107); Eosinophils Percent Auto 2.3 % (2-4); Estimated Glomerular Filt Rate > 60.0 mL/min (>60); Glucose 96 mg/dL (80-110); HEMOLYSIS < 15 (0-50); Hemoglobin 11.2 g/dL (13.5-17.5); Lymphocytes Percent Auto 10.1 % (25-40); Mean Corpuscular Hemoglobin 30.1 PG (26-34); Mean Corpuscular Volume 88.8 fL (80-100); Monocytes Percent Auto 10.5 % (3-14); Neutrophils Absolute Auto 6100 /uL (3000-5900); Neutrophils Percent Auto 76.1 % (50-75); Platelet Count 262 X10^3/uL (150-400); Potassium 4.1 mmol/L (3.4-5.1); Red Blood Cell Count 3.72 X10^6/uL (4.5-5.9); Red Cell Distribution Width 15.2 % (11.6-14.8); Sodium 138 mmol/L (137-145)
--- NOTE | 2018-02-01 08:56 | P.PN_ITS ---
Subjective Date Patient Seen: 02/01/18 Time Patient Seen: 08:23 Interval history: The patient admitted for fall with significant shortness of breath weakness. Long history of congestive heart failure and Parkinson's as well causes for both of those. Also found to have anemia. Workup so far shows negative stool guaiacs vital signs are stable today blood count trace lower but not very much no evidence of bleeding. Does have significant bruising and gives a fair litany of falling and blocking again probably compromised by his Parkinson's. Feels better today fairly clear mind not confused about what is going on speech is clear does have his chronic neurologic limitation stiffness a nd no issues consistent with Parkinson's. No chest pain shortness of breath. Has done some ambulation with assistance and will work on that today try to stabilize his strength minimize her risk for falls. I believe patient is going to need a higher level of care. Will have him either look at his knee if or a assisted living in environment and will check with care management as to which he had he and the family have requested. Exam Vital Signs (past 8 hours): - 02/01/18 05:28 Temperature 97.9 F Pulse Rate 62 Respiratory Rate 20 Blood Pressure 137/57 L Pulse Oximetry 95 Oxygen Delivery Method Nasal Cannula Oxygen Flow Rate 0.5 Narrative Exam Narrative: Patient is alert oriented answering questions clearly. PERRLA EOMs are intact. Neck without adenopathy or mass. Skin shows numbers of scrapes abrasions and bruises from the top of his head down through the arms and on to the legs. Lungs decreased breath sounds in the bases no wheezing. Cardiac exam shows irregular rhythm no murmur no significant S3 1+ dependent edema with chronic venous insufficiency changes. Abdomen nontender know his spouse pad applied splenomegaly or masses noted bowel sounds present. Skin abraded and bruised as noted above. Lesions healing on lower shins bilaterally. Neuro patient id has some stiffness and slight tremor consistent with Parkinson's but cognitively seems quite clear speech is very clear as well Objective Labs Result Diagrams: 02/01/18 05:32 02/01/18 05:32 Labs: Laboratory Results - last 24 hr 02/01/18 02/01/18 05:32 05:32 WBC 8.0 RBC 3.72 L Hgb 11.2 L Hct 33.0 L MCV 88.8 MCH 30.1 MCHC 34.0 RDW 15.2 H Plt Count 262 Neut % (Auto) 76.1 H Lymph % (Auto) 10.1 L [place] % (Auto) 10.5 Eos % (Auto) 2.3 Baso % (Auto) 1.0 Neut # (Auto) 6100 H Sodium 138 Potassium 4.1 Chloride 102 Carbon Dioxide 28 BUN 36 H Creatinine 0.70 Estimated GFR > 60.0 BUN/Creatinine Ratio 51.4 H Glucose 96 Calcium 8.5 Assessment & Plan Plan: Assessment/Plan Narrative: Assessment 1. Falls. And thinks patient had a significant fall with a lot of musculoskeletal trauma but no acute breaks. I think this is secondary to his assisted Parkinson's could also be affected by his anemia atrial fibrillation. No sign of bleeding at this point will work with physical therapy today tried a get a ride ID about his limitations and anticipate that he will require a higher level of care or he will he will have a much more significant injury in the near future. Assessment 2. Atrial fibrillation seems to be well compensated at this point r ate is in good control only mild edema. Patient not in a candidate for anticoagulation secondary to his falling and will continue that plan Assessment 3. Anemia patient is not seeing his hematocrit dropped any further. Negative stool guaiacs. I think that he has probably got the anemia of chronic disease. Will recheck labs for morning and if that continues to not drop consider transfer to his care location either assisted living or sniff tomorrow Assessment 4. Parkinson's patient seems to be at his baseline with his Parkinson's will continue with his current medications and neurologic o bservation as well Assessment 5. Nonhealing peripheral skin breakdowns. I think this is secondary to chronic venous insufficiency with is seeing wound Care for this we will continue with that program. Assessment 6 hypertension think patient has a component of congestive heart failure with this as well. Will continue with his current antihypertensives and diuretics. Assessment 7 hyperlipidemia patient tolerates med well in good control will continue with current regimen.
[2018-02-01] MEDS: ENOXAPARIN 40 MG/0.4 ML SYRINGE SUBCUT (09:19)
[2018-02-01] MEDS: CARBIDOPA-LEVODOPA ER 50/200 TABLET 1 EACH PO (09:20)
[2018-02-01] MEDS: CARBIDOPA-LEVODOPA 25/100 TABLET 1 EACH PO ×4 (09:21→20:09)
[2018-02-01] MEDS: ROPINIROLE 4 MG TABLET 6 MG PO ×3 (09:22→20:08)
[2018-02-01] MEDS: FUROSEMIDE 20 MG/2 ML VIAL IV ×2 (09:22→17:04)
[2018-02-01] MEDS: SODIUM CHLORIDE 0.9% FLUSH 10 ML IV ×3 (09:23→20:10)
--- NOTE | 2018-02-01 11:28 | DIET.PN ---
Pt has very little appetite; not much tastes good to him and has many food preferences/dislikes. Ordering only broth and pumpkin pie for lunch today which I ok'd, even though pie is not heart healthy. DX: Parkinsons dz, back pain, compression fx, acute CHF Diet: heart healthy - modified/low fat, 2g sodium Assessment: Eating poorly. More important to take in nutrition than avoid fats. Moderate low sodium diet may be more appropriate to liberalize diet and offer more choices. Intervention: Changed diet to No added salt (approx 4g Na+). Sending roger Enlive BID or milk shakes. Plan: Encourage PO intake
[2018-02-01] MEDS: FERROUS GLUCONATE 324 MG TABLET PO ×2 (12:55→22:17)
--- NOTE | 2018-02-01 13:28 | PT.IPTN ---
Current Diagnoses Low back pain (01/30/18) Physical Therapy Treatment Note M2 PT-IP Current Condition Start: 01/31/18 11:04 Freq: NEEDED Status: Active Protocol: Document 01/31/18 10:20 (Rec: 01/31/18 11:42 [email or web address]) Physical Therapy Current Condition Current Condition Evaluation Date 01/31/18 Treatment Diagnosis GLF; LBP; Parkinsons; Difficulty walking Onset Date 01/30/18 Precautions Lumbar Precautions Log Roll No Twisting Limit Bending Lifting Restriction of 10 lbs Gait Belt above Incisional Area Other Precautions Fall risk Pt does not have formal orders for lumbar precautions but pt is advised to protect his back with standard lumbar precautions as above. M3 PT-IP Subjective Start: 01/31/18 11:04 Freq: NEEDED Status: Active Protocol: Document 02/01/18 13:21 [facility] (Rec: 02/01/18 13:28 [facility] [id number]) Subjective Physical Therapy Visit Type Type Treatment Note Visit Start Time 10:12 Visit Stop Time 10:30 Total Visit Minutes 18 Number of ADVANCED PRACTICE PROFESSIONAL Visits 0 Physical Therapy Visit Comments Patient Comments Pt agreeable to mobilize with PT since he wants to go home M4 PT-IP Mobility and Gait Start: 01/31/18 11:04 Freq: NEEDED Status: Active Protocol: Document 02/01/18 13:21 [facility] (Rec: 02/01/18 13:28 [facility] [email or web address]) PT-Transfer Assessment Sit to and From Stand Sit to and from Stand Contact Guard Assistance Equipment Transfer Assistive Device Gait Belt Front Wheeled Walker Orthotic/Prosthetic Devices or Brace: No Comments Mobility Comments Pt stood from chair 2x CGA. Gait Assessment Gait Gait Assistance Required: Contact Guard Assist Minimum Assistance Distance (Feet) 200 Able to Maintain Weight Bearing Status Yes During Gait Assistive Devices Assistive Device Gait Belt Front Wheeled Walker Orthotic/Prosthetic Devices or Brace: No Gait Deviations General Gait Pattern Decreased Stride Length Decreased Feet Clearance Flexed Trunk Narrow Based Gait Wide Based Gait Factors Limiting Gait Function Factors Limiting Gait Function Abnormal Tonal Influences Decreased Activity Tolerance Decreased Strength Incoordination Limited Range of Motion Pain Poor Balance Poor Safety Awareness Comments Gait Comments Pt amb with CGA for most of walk except when turning corners and turning around, he required min A to maintained balance. At start of gait, pt also required min A as he LLE would lag behind him and was catching on his RLE during swing phase. As he progressed, gait improved. M5 PT-IP Objective Assessments Start: 01/31/18 11:04 Freq: NEEDED Status: Active Protocol: Document 01/31/18 10:20 (Rec: 01/31/18 11:42 [email or web address]) Orientation Orientation/Cognition Level of Alertness Alert Orientation Name Birthday Place Situation Safety Awareness Decreased Safety Awareness Comments Pt impulsive, requiring multiple cues to wait for PT to assist Strength Comments Strength Comments Not formally tested. Functionally decreased as observed with need for physical assist with sit <> stand from lower surfaces. Other Assessments Other Other Assessments Pt demonstrates constant tremors, and writhing tone in BLE, trunk and face. M6 PT-IP Treatment Start: 01/31/18 11:04 Freq: NEEDED Status: Active Protocol: Document 01/31/18 10:20 (Rec: 01/31/18 11:42 [email or web address]) Physical Therapy Treatment Education Education Provided Precautions Safety M7 PT-IP Assessment and Plan Start: 01/31/18 11:04 Freq: NEEDED Status: Active Protocol: Document 02/01/18 13:21 [facility] (Rec: 02/01/18 13:28 [facility] [id number]) PT Summary Assessment and Plan Summary Progress Towards Goals Slow Progress due to Medical Issues Slow Progress due to Activity Tolerance Assessment Summary Pt improved with his ability to ambulate today and was able to ambulate a further distance, but cont to not be safe when amb alone, as he has difficulty with turns and with gait initiation, he has a tendency to have too narrow of gait. Goals Bed Mobility Goal Standby Assistance Transfer Goal Standby Assistance Front Wheeled Walker Gait Goal Standby Assistance Front Wheel Walker Gait Distance 100 Days to Meet Goals 5 Frequency of Treatment Frequency Of Treatment Once a Day Treatment Plan Physical Therapy Treatment Plan Bed Mobility Training Transfer Training Gait Training Therapeutic Exercise Balance Retraining Discharge Planning Hot or Cold Pack Neuromuscular Re-ed Coordination Retraining Manual Therapy Other Recommendations and Next Treatment 4WW as appropriate Focus Recommendations To Nursing Amount of Assist Needed 1 Person Assist Discharge Recommendations PT Discharge Recommendations SNF Rehab
--- NOTE | 2018-02-01 14:12 | PC.NURSE ---
Addendum entered by Martin Walters R.N. 02/01/18 14:40: MD NOTIFIED PATIENT'S BP 100/42, HAD EPISODE YESTERDAY OF BP MID 80'S OVER LOW 40'S REPORTED TO THIS RN COORDINATOR YESTERDAY. ORDER TO HOLD COREG AND LISINOPRIL AND MD WILL REVIEW TOMORROW. [facility]AR WOULD NOT ALLOW A HOLD. DISCUSSED W/ PHARMACY AND BOTH MEDS DC'D AT THIS TIME, WILL STILL NEED REVIEW W/ MD IN AM. Original Note: PATIENT ALERT AND ORIENTED. DENIES PAIN. EXERTIONAL SOB WITH SAT 91%-92% AFTER ACTIVITY. LUNGS CLEAR, DIMINISHED. AMBULATED IN [place] W/ PHYSICAL THERAPY THIS AM. HAS BEEN UP IN RECLINER ALL SHIFT. DRSG TO BLE CHANGED SEE DOCUMENTATION. DELAYED GIVING COREG THIS AM, TO MONITOR BP'S CLOSELY. HAD HYPOTENSIVE EPISODES YESTERDAY. BP 100/42 THIS AFTERNOON. LEFT MSG AT MD OFFICE TO NOTIFY COREG AM DOSE HELD, AND BOTH DOSES HELD YESTERDAY. LEFT X 1322 FOR RETURN CALL.
--- NOTE | 2018-02-01 14:48 | OT.IP.TRT ---
Current Diagnoses Low back pain (01/30/18) Occupational Therapy Treatment Note M2 OT-IP Current Condition Start: 01/31/18 13:56 Freq: Status: Active Protocol: Document 01/31/18 13:50 [facility] (Rec: 01/31/18 14:27 [facility] [id number]) Occupational Therapy Current Condition Current Condition Evaluation Date 01/31/18 Treatment Diagnosis decreased self care, functional mobility s/p fall, severe LBP, Parkinsons Diagnosis Onset Date 01/30/18 Post Operative Precautions Lumbar Precautions Log Roll No Twisting Limit Bending Lifting Restriction of 10 lbs Gait Belt above Incisional Area Other Precautions Fall risk Pt does not have formal orders for lumbar precautions but pt is advised to protect his back with standard lumbar precautions as above. M3 OT- IP Subjective and Pain Start: 01/31/18 13:56 Freq: Status: Active Protocol: Document 02/01/18 14:48 [facility] (Rec: 02/01/18 16:14 [facility] [email or web address]) OT- Subjective Occupational Therapy Visit Type Type Treatment Note Visit Start Time 14:25 Visit Stop Time 14:48 Notes Pt asleep in recliner when therapist arrived. Alerts easily to voice. Occupational Therapy Visit Comments Patient Comments My daughter found me a new place to live when I leave rehab. I can't get enough help at [facility]. Patient/Caregiver Goals to get stronger and move to assisted living facility OT Pain Assessment Pain When Pain Assessed After Treatment Pain Present Pain Present Pain Reported Location Lower Back Intensity 2 Scale Used Numeric (1 - 10) Description Aching Acute M4 OT- IP ADL's Start: 01/31/18 13:56 Freq: Status: Active Protocol: Document 02/01/18 14:48 [facility] (Rec: 02/01/18 16:14 [facility] [email or web address]) OT ADL-Grooming General Evaluation Grooming Ability Contact Guard Assistance Comments OT Grooming Comments to wash hands at sink, needs verbal cues for FWW use near sink to avoid leaving it to the side. Pt leans on sink to self stabilize. OT ADL-Dressing General Eval Lower Body Dressing Ability Total Assistance Areas Needing Assistance Socks Comments OT Dressing Comments Pt requesting assist from therapist to don socks as chair is to high to reach forward to his feet easily OT ADL-Toileting General Evaluation Toileting Ability Minimal Assistance Devices Toileting Assistive Devices Grab Bars Raised Toilet Seat Toilet Paper Aid Comments OT Toileting Comments Pt needs contact guard assist for balance and min assist to pull brief up on R side after toileting. He reports using toilet paper aid at home for ramu care after BM. M5 OT- IP IADL's Start: 01/31/18 13:56 Freq: Status: Active Protocol: Document 01/31/18 13:50 [facility] (Rec: 01/31/18 14:27 [facility] [id number]) OT-Instrumental Activities of Daily Living Deficits IADL Deficits Identified Deficits Home Safety Awareness Awareness of Need for Assistance at Home Good Awareness Medication Management Medication Management No Deficits Identified Medication Management Comments Pt sets up own pillbox accurately at home per daughter. Money Management Money Management Caregiver Provides Assistance Money Management Comments Daughters assist with writing checks due to inability to write and low near vision Meal Preparation Meal Preparation Caregiver Provides Assist Meal Preparation Comments Two meals/day provided at patient's facility. Vice President And Portfolio Manager Vice President And Portfolio Manager Caregiver Provides Assist Vice President And Portfolio Manager Comments Pt has housekeeping assist 1x week; daughters assist with shopping and laundry. Driving Driving Caregiver Provides Assist Driving Comments Pt no longer drives. M6 OT- IP Functional Cognition Start: 01/31/18 13:56 Freq: Status: Active Protocol: Document 01/31/18 13:50 [facility] (Rec: 01/31/18 14:27 [facility] [id number]) Cognitive Factors Limiting Selfcare Function Cognitive Ability Level of Alertness Drowsy Patient Orientation Name Age Birthday Month Date Year Day of Week Place Situation Attention Span Ability Capable of Focused Attention Ability to Follow Commands Able to Follow One Step Commands Cognitive Comments Cognitive Assessment Comments Pt drowsy this session with eyes closing periodically and decreased sustained attention, but alerts easily to voice. Pt pleasant and cooperative. OT- Vision and Hearing OT- Hearing Assessment OT- Hearing Assessment WFL OT- Vision Assessment Vision History Cataracts Macular Degeneration Visual Attentiveness WFL Vision Assessment Comments Pt s/p B cataract surgery and can read wall clock without glasses. He uses glasses to watch TV and when out in community. M.D. has impaired near vision per pt. M7 OT- IP Mobility and Balance Start: 01/31/18 13:56 Freq: Status: Active Protocol: Document 02/01/18 14:48 [facility] (Rec: 02/01/18 16:14 [facility] [email or web address]) OT-Transfer Assessment Sit to and From Stand Sit to and from Stand Contact Guard Assistance 1 Person Assistance Transfers Transfer Ability Contact Guard Assistance 1 Person Assistance Technique Transfer Destination Chair Transfer Technique Stand Step Pivot Devices Transfer Assistive Devices Gait Belt Front Wheeled Walker Comments Mobility Comments unsteady on turns and tends to leave FWW to side instead of keeping it in front of him and backing up to chair OT- Gait Assessment Gait Gait Assistance Required: Contact Guard Assist Distance (Feet) 200 Assistive Devices Assistive Device Gait Belt Front Wheeled Walker Comments Gait Ability Comments Pt requesting to walk in halls to increase endurance and balance. Pt unsteady on turns and tends to get L foot outside walker. Pt tends to drag L toes and bumps L foot on R foot at times. Pt does better with verbal cues to with slow his pace OT- Balance Assessment Sitting Balance and Reactions Static Sitting Balance Ability Good Dynamic Sitting Balance Ability Fair Standing Balance and Reactions Static Standing Balance Ability Good Dynamic Standing Balance Ability Fair Comments Other Balance Tests/Deviations/Treatment during lower body clothing : management in standing OT- Coordination Assessment Comments Coordination Comments Moderately impaired by BUE/ hand tremors from Parkinsons OT-Muscle Tone Assessment Muscle Tone WNL Yes OT Sensation Assessment Comments Summary Comments Pt has numbness in 3rd, 4rth fingers R hand; otherwise WNL. M9 OT- IP Assessment and Plan Start: 01/31/18 13:56 Freq: Status: Active Protocol: Document 02/01/18 14:48 [facility] (Rec: 02/01/18 16:14 [facility] [id number]) OT Summary Assessment and Plan Potential Rehabilitation Potential Good Summary Progress Towards Goals Progressing Toward Goals Assessment Summary Pt making daily progress with self care and mobility with minimal complaints of low back pain today. He is no longer retropulsing when he first stands. Pt continues to require close CGA for all functional mobility/transfers due to decreased balance and need for verbal cues re: FWW use. Pt not safe to return to independent living situation due to high fall risk. Recommend SNF at d/c with long term care phlebotomist goal of transition to assisted living if pt make sufficient progress. Goals Grooming Goal Standby Assistance Dressing Goal Standby Assistance Toileting Goal Standby Assistance Bathing Goal Minimal Assistance Grab Bars Hand Held Shower Sprayer Long Handled Sponge or [place] Toilet Transfer Goal Standby Assistance Shower Transfer Goal Contact Guard Assistance Patient/Caregiver Education Goal Demonstrate Energy Conservation and Pacing OT-Other Goals Grooming to be done standing at sink. LB dressing to be done with SBA and no loss of balance noted. Days to Meet Goals 5 Frequency of Treatment Frequency Of Treatment Once a Day Treatment Plan OT Treatment Plan ADL Training Functional Mobility Patient/Family Education Discharge Planning Discharge Recommendations OT Discharge Recommendations SNF Rehab Other Discharge Recommendations fci goal of transition to assisted living
--- NOTE | 2018-02-01 17:43 | PC.NURSE ---
Student nurse note: Patients BLE's had some slight edema (1+). Advised and assisted patient to elevate legs. Patient ate about 40% of his meal independently. It was asked if he would like assistance eating and he declined. He stated he is doing well with the OT foam utensil device. Patients resting O2 is hovering around 97% today. Patient stated he is excited to go to the rehab facility tomorrow and that people keep telling him he is looking healthy.
[2018-02-01] MEDS: ATORVASTATIN 20 MG TABLET 40 MG PO (20:09)
[2018-02-02 00:15] VITALS: BP 144/56; PULSE 60; RESP 20; TEMP 36.6; O2SAT 92
[2018-02-02 03:39] VITALS: BP 154/61; PULSE 64; RESP 22; TEMP 37; O2SAT 93
[2018-02-02 05:51] LABS: Add Manual Diff / Slide Review NO; Alanine Aminotransferase 23 IU/L (21-72); Albumin Globulin Ratio 1.1 (1.0-2.8); Alkaline Phosphatase 173 U/L (38-126); Aspartate Aminotransferase 28 IU/L (17-59); BUN Creatinine Ratio 48.3 (6-22); Bilirubin Total 1.2 mg/dL (0.2-1.3); Blood Urea Nitrogen 29 mg/dL (9-20); Calcium 8.1 mg/dL (8.4-10.2); Carbon Dioxide 29 mmol/L (22-32); Chloride 100 mmol/L (98-107); Eosinophils Percent Auto 2.4 % (2-4); Estimated Glomerular Filt Rate > 60.0 mL/min (>60); Globulin 2.8 g/dL (1.7-4.1); Glucose 105 mg/dL (80-110); HEMOLYSIS < 15 (0-50); Hematocrit 31.7 % (41-53); Hemoglobin 10.8 g/dL (13.5-17.5); Lymphocytes Percent Auto 8.9 % (25-40); Mean Corpuscular Hemoglobin 30.3 PG (26-34); Mean Corpuscular Volume 89.1 fL (80-100); Monocytes Percent Auto 9.9 % (3-14); Neutrophils Absolute Auto 6700 /uL (3000-5900); Neutrophils Percent Auto 77.8 % (50-75); Platelet Count 267 X10^3/uL (150-400); Potassium 3.9 mmol/L (3.4-5.1); Red Blood Cell Count 3.56 X10^6/uL (4.5-5.9); Red Cell Distribution Width 15.5 % (11.6-14.8); Sodium 137 mmol/L (137-145); Total Protein 5.8 g/dL (6.3-8.2); White Blood Cell Count 8.7 X10^3/uL (4.5-11.0)
[2018-02-02 08:00] VITALS: O2SAT 98
[2018-02-02 08:20] VITALS: BP 147/59; PULSE 61; RESP 20; TEMP 36.6; O2SAT 95
--- NOTE | 2018-02-02 08:50 | PM.DS.1 ---
History of Present Illness Chief complaint: FALL BACK IS KILLING HIM Discharge Providers Date of admission: 01/30/18 01:35 Primary care physician: Red Kessler MD Consults: 01/30/18 06:36 Consult to Dietitian, Adult Routine Comment: Reason For Exam: Recent weight loss. Parkinsons Hx 01/30/18 13:45 Consult to Wound Care Routine Comment: Consulting Provider: [facility] 01/30/18 13:46 Consult to Occupational Therapy Evaluate & Treat Comment: Physician Instructions: Evaluate and treat Consult to Physical Therapy Evaluate & Treat Comment: Physician Instructions: Evaluate and Treat Discharge provider: Jared Dorsey MD Discharge Date: 02/02/18 Summary Discharge Diagnosis: Vertebral compression fracture following fall which was secondary to his Parkinson's. Parkinson's with progressive limitation to mobility Nonhealing leg wounds chronic vascular insufficiency Anemia stable no evidence of bleeding Hypertension Hospital Course: Patient was admitted with intractable pain that had failed outpatient management. Was was admitted and physical therapy pain control initiated which has held patient is now able to ambulate in the halls. Have continued his current Parkinson's medications hypertensives pain control meds and establish good control of all of those. Status at Discharge Cognitive/behavioral status at discharge: Patient is at baseline for cognitive function Functional status at discharge: independent ambulation Overall status at discharge: patient is back to baseline Time Spent with Patient Greater than 30 minutes Exam Vital Signs (past 8 hours): - 02/02/18 03:39 Temperature 98.6 F Pulse Rate 64 Respiratory Rate 22 Blood Pressure 154/61 H Pulse Oximetry 93 Oxygen Delivery Method Room Air Oxygen Flow Rate 0 Narrative Exam Narrative: Patient is alert oriented speaking very clearly cognitively intact. Good appetite PE are RLA EOMs intact Neck without mass or thyromegaly Lungs clear to auscultation Cardiovascular shows regular rate and rhythm without murmur Abdomen nontender no hepatosplenomegaly or mass Diffuse bruises to skin Lower extremities with swelling and some chronic brawny discoloration and lesion on each cheek and that is very slow to heal. Neuro shows consequence of his Parkinson's symmetrically Objective Labs Result Diagrams: 02/02/18 05:22 02/02/18 05:22 Labs: Laboratory Results - last 24 hr 02/02/18 02/02/18 05:22 05:22 WBC 8.7 RBC 3.56 L Hgb 10.8 L Hct 31.7 L MCV 89.1 MCH 30.3 MCHC 34.0 RDW 15.5 H Plt Count 267 Neut % (Auto) 77.8 H Lymph % (Auto) 8.9 L [place] % (Auto) 9.9 Eos % (Auto) 2.4 Baso % (Auto) 1.0 Neut # (Auto) 6700 H Sodium 137 Potassium 3.9 Chloride 100 Carbon Dioxide 29 BUN 29 H Creatinine 0.60 L Estimated GFR > 60.0 BUN/Creatinine Ratio 48.3 H Glucose 105 Calcium 8.1 L Total Bilirubin 1.2 AST 28 ALT 23 Alkaline Phosphatase 173 H Total Protein 5.8 L Albumin 3.0 L Globulin 2.8 Albumin/Globulin Ratio 1.1 Discharge Plan Discharge Plan Patient Disposition: SNF Transfer to: [facility] Under care of provider: Dr Kessler Transportation: Facility vehicle I certify the postop hospital long-term care is medically necessary on a continuing basis for any conditions for which he/ she received care during this hospitalization.: Yes The receiving facility has agreed to accept transfer and provide medical treatment.: Yes Discharge Med Rec/Prescriptions Prescriptions: New hydrocodone-acetaminophen [[place]] 5-325 mg tablet 1 tab PO Q6H PRN (Reason: pain) Qty: 10 RF: 0 Continue spironolactone 25 MG tablet 25 mg PO QDAY Qty: 0 RF: 0 atorvastatin [Lipitor] 40 MG tablet 40 mg PO HS Qty: 0 RF: 0 furosemide 40 mg tablet 60 mg PO DAILY RF: 0 carvedilol 3.125 mg tablet 1 tab PO BID RF: 0 lisinopril 10 mg tablet 5 mg PO DAILY RF: 0 ropinirole [Requip] 3 MG tablet 2 tab PO TID RF: 0 carbidopa-levodopa 50 MG/200 MG tablet extended release 1 tab PO Q4H RF: 0 carbidopa-levodopa 25 MG/100 MG tablet 1 tab PO DIRECTED RF: 0 Follow up/Referrals: Red Kessler MD [Primary Care Provider] - Discharge Health Status Brief summary of current health status: Patient's weakness improved with hydration and therapy. Patient's Parkinson's is stable on current medications. Patient's pain has improved following his fall secondary to his Parkinson's. Patient has nonhealing wounds due to chronic vascular insufficiency of the lower legs which will need continue dressings at the [place] [facility]. Multidrug resistant organism: No MDRO MDRO Verified by culture: Yes Precautions: [place] Provider Discharge Instructions Diet: Diet as Tolerated Food texture: Regular Skin/Wound/Dressing Care Other wound treatment: Patient will need daily dressings to lower extremities with Adaptic and nonstick dressing and gauze over Special Rehabilitation Services Reason for rehabilitation: Recovery r/t decondition Rehab type: Physical therapy and Occupational therapy Visit Report/Discharge Packet Instructions: Vertebral Compression Fracture Discharge Data Primary Care Provider: Red Kessler Attending Provider: Ryder Wells Admit Date/Time: 01/30/18 01:35
[2018-02-02] MEDS: CARBIDOPA-LEVODOPA 25/100 TABLET 1 EACH PO (08:53)
[2018-02-02] MEDS: FERROUS GLUCONATE 324 MG TABLET PO (08:53)
[2018-02-02] MEDS: CARBIDOPA-LEVODOPA ER 50/200 TABLET 1 EACH PO (08:53)
[2018-02-02] MEDS: ENOXAPARIN 40 MG/0.4 ML SYRINGE SUBCUT (08:53)
[2018-02-02] MEDS: FUROSEMIDE 20 MG/2 ML VIAL IV (08:53)
[2018-02-02] MEDS: ROPINIROLE 4 MG TABLET 6 MG PO (08:53)
[2018-02-02] MEDS: SODIUM CHLORIDE 0.9% FLUSH 10 ML IV (08:53)
--- NOTE | 2018-02-02 11:35 | PT.IPTN ---
Current Diagnoses Low back pain (01/30/18) Physical Therapy Treatment Note M2 PT-IP Current Condition Start: 01/31/18 11:04 Freq: NEEDED Status: Active Protocol: Document 01/31/18 10:20 (Rec: 01/31/18 11:42 [email or web address]) Physical Therapy Current Condition Current Condition Evaluation Date 01/31/18 Treatment Diagnosis GLF; LBP; Parkinsons; Difficulty walking Onset Date 01/30/18 Precautions Lumbar Precautions Log Roll No Twisting Limit Bending Lifting Restriction of 10 lbs Gait Belt above Incisional Area Other Precautions Fall risk Pt does not have formal orders for lumbar precautions but pt is advised to protect his back with standard lumbar precautions as above. M3 PT-IP Subjective Start: 01/31/18 11:04 Freq: NEEDED Status: Active Protocol: Document 02/02/18 11:35 AB (Rec: 02/02/18 12:02 AB [email or web address]) Subjective Physical Therapy Visit Type Type Treatment Note Visit Start Time 11:35 Visit Stop Time 11:50 Total Visit Minutes 15 Number of MANAGER INFRASTRUCTURE Visits 0 Physical Therapy Visit Comments Patient Comments I can walk with you Therapy Pain Assessment Pain Present Pain Present Denied Pain M4 PT-IP Mobility and Gait Start: 01/31/18 11:04 Freq: NEEDED Status: Active Protocol: Document 02/02/18 11:35 AB (Rec: 02/02/18 12:02 AB [email or web address]) PT-Transfer Assessment Sit to and From Stand Sit to and from Stand Contact Guard Assistance Gait Assessment Gait Gait Assistance Required: Contact Guard Assist Minimum Assistance Distance (Feet) 225 Able to Maintain Weight Bearing Status Yes During Gait Assistive Devices Assistive Device Gait Belt Front Wheeled Walker Orthotic/Prosthetic Devices or Brace: No Gait Deviations General Gait Pattern Decreased Feet Clearance Narrow Based Gait Factors Limiting Gait Function Factors Limiting Gait Function Abnormal Tonal Influences Decreased Activity Tolerance Decreased Strength Poor Balance Poor Safety Awareness Comments Gait Comments requires min A with turns. M5 PT-IP Objective Assessments Start: 01/31/18 11:04 Freq: NEEDED Status: Active Protocol: Document 01/31/18 10:20 (Rec: 01/31/18 11:42 [email or web address]) Orientation Orientation/Cognition Level of Alertness Alert Orientation Name Birthday Place Situation Safety Awareness Decreased Safety Awareness Comments Pt impulsive, requiring multiple cues to wait for PT to assist Strength Comments Strength Comments Not formally tested. Functionally decreased as observed with need for physical assist with sit <> stand from lower surfaces. Other Assessments Other Other Assessments Pt demonstrates constant tremors, and writhing tone in BLE, trunk and face. M6 PT-IP Treatment Start: 01/31/18 11:04 Freq: NEEDED Status: Active Protocol: Document 02/02/18 11:35 AB (Rec: 02/02/18 12:02 AB [email or web address]) Physical Therapy Treatment Education Education Provided Safety M7 PT-IP Assessment and Plan Start: 01/31/18 11:04 Freq: NEEDED Status: Active Protocol: Document 02/02/18 11:35 AB (Rec: 02/02/18 12:02 AB [email or web address]) PT Summary Assessment and Plan Potential Rehabilitation Potential Good Summary Impairments Strength Balance Coordination Tone Cognition Bed Mobility Transfers Gait Activity Tolerance Progress Towards Goals Progressing Toward Goals Assessment Summary pt requiring CGA with ambulation but min A with turns but continues to be a fall risk due to decrease safety awareness and decrease standing balance/tolerance. requires constant cues not to have FWW too far ahead during ambulation. has a decrease step width and decrease LLE elevation during ambulation. pt plans to go to SNF today. Goals Bed Mobility Goal Standby Assistance Transfer Goal Standby Assistance Front Wheeled Walker Gait Goal Standby Assistance Front Wheel Walker Gait Distance 100 Days to Meet Goals 5 Frequency of Treatment Frequency Of Treatment Once a Day Treatment Plan Physical Therapy Treatment Plan Bed Mobility Training Transfer Training Gait Training Therapeutic Exercise Balance Retraining Discharge Planning Hot or Cold Pack Neuromuscular Re-ed Coordination Retraining Manual Therapy Other Recommendations and Next Treatment 4WW as appropriate Focus Recommendations To Nursing Amount of Assist Needed 1 Person Assist Discharge Recommendations PT Discharge Recommendations SNF Rehab
--- NOTE | 2018-02-02 11:48 | CM.DPC ---
DCP: continued: case received, EMR reviewed and d/c to snf if noted. Met with pt and his daughter Nicole Stone to confirm plan for [facility]. Nicole will be taking pt today and with plan to arrive at [facility] at about 1430 (she set with up with [place]/[facility] yesterday.). Nicole says she is very comfortable driving pt to the facility. Called [place], he confirms that he has looked at the d/c orders for today and all seems fine and he is expecting pt by 1430. JLUIS Salazar is updated. CHRISTIANO has faxed orders and PASRR to [facility] [place]. Wound care note from Devorah Anthony/RN/wound clinic consult is noted and this, too will be faxed. P: [facility] and then to [facility] after snf rehab.
--- NOTE | 2018-02-02 12:45 | PC.NURSE ---
pt's dtr Nicole arrived to take patient to [facility], report called to [facility], all questions answered to satisfaction. reviewed chf, meds, labile blood pressures, skin ulcers, wound care, reviewed labs. reported that patient has already left and that this rn justed noted that patient did not have iron supplement ordered for discharge. [facility] will f/u with this. patient showered this am. 1p assist. discussed his mobility. packet sent with Nicole with script for hydrocodone enclosed.
== END 2018-02-02 12:10 | DRG 551 ==
LOC: ED 01-30 01:26 → AC 01-30 07:22
PROVIDERS: Family Medicine; Admitting Provider Family Medicine; Emergency Provider Emergency Medicine; Family Provider Family Medicine; PCP Family Medicine; Visit Provider Family Medicine
DX: M54.5 Low back pain (principal); I50.23 Acute on chronic systolic (congestive) heart failure; I11.0 Hypertensive heart disease with heart failure; E87.5 Hyperkalemia; G20 Parkinson's disease; Z91.81 History of falling; D50.9 Iron deficiency anemia, unspecified; I87.2 Venous insufficiency (chronic) (peripheral); S81.802A Unspecified open wound, left lower leg, initial encounter; S81.801A Unspecified open wound, right lower leg, initial encounter; Y92.099 Unspecified place in other non-institutional residence as the place of occurrence of the external cause; W18.39XA Other fall on same level, initial encounter; I48.91 Unspecified atrial fibrillation; I25.10 Atherosclerotic heart disease of native coronary artery without angina pectoris; Z95.0 Presence of cardiac pacemaker; E11.9 Type 2 diabetes mellitus without complications
CPT/HCPCS: 36415; 36591; 71045; 72100; 80048; 80053; 82607; 82746; 83540; 83550; 83880; 84484; 85025; 85045; 93005; 94760; 96374; 96375; 97116; 97162; 97165; 97530; 97535; 99283; 99285; J1650; J1940; J2270